=== PATIENT | female | born 1980 | race Caucasian/White ===

== ENCOUNTER 2023-01-27 17:19 | Emergency (ER) | payer OTHER, SELFPAY ==
--- NOTE | ~2023-01-27 | CT_ITS ---
EXAMINATION: CT ABDOMEN AND PELVIS WITH CONTRAST CLINICAL INFORMATION: Left lower quadrant abdominal pain COMPARISON: 09/04/2019 TECHNIQUE: Multidetector volumetric images were obtained from the superior aspect of the liver through the pubic symphysis following administration 85 mL of Omnipaque 350 intravenous contrast. Sagittal and coronal reformatted images were obtained on the technologist's workstation. Oral contrast: No This CT examination was performed using dose optimization techniques as appropriate, variously including the following: *Automated exposure control *Adjustment of mA and/or kV according to patient size (this includes techniques or standardized protocols for targeted exams where dose is matched to indication/reason for exam; i.e. extremities or head) *Use of iterative reconstruction technique DLP: 398 mGy-cm FINDINGS: LUNG BASES: The visualized lung bases are unremarkable. LIVER, GALLBLADDER, AND BILIARY TREE: The liver is normal in size, shape, and attenuation. No focal hepatic lesion or biliary ductal dilatation is present. The gallbladder is unremarkable with no evidence of radiopaque gallstones, gallbladder wall thickening, or obvious pericholecystic inflammatory changes. PANCREAS: Cystic area in the region of the uncinate process of uncertain etiology. This may be septated. Measures 1.2 cm SPLEEN: Unremarkable. ADRENAL GLANDS: Unremarkable. KIDNEYS AND URETERS: The kidneys are normal in size, shape, and attenuation. No hydronephrosis, hydroureter, or calculi seen. No perinephric stranding. BLADDER: Unremarkable. GASTROINTESTINAL TRACT: Nonobstructing bowel pattern. ABDOMINAL WALL: No significant hernia is appreciated. LYMPH NODES: Normal. VASCULAR: Stent once again seen involving the left renal vein. Hardware in the abdomen appears unchanged. PELVIC VISCERA: Some free fluid is seen in the deep pelvis. IUD appears to be in the lower uterine segment and cervical region. OSSEOUS STRUCTURES: Unremarkable. CT/CT abdomen pelvis w IV con IMPRESSION: The bowel pattern is nonobstructing. It is noted the IUD is in the lower uterine segment/cervical region and may have migrated inferiorly There is a small amount of free fluid in the deep pelvis. Small cystic lesion in the region of the uncinate process of the pancreas. Recommend ultrasound and/or pre and postcontrast MR to further evaluate.
[2023-01-27 17:54] VITALS: BP 114/76; PULSE 78; RESP 16; TEMP 36.4; O2SAT 98; BMI 23.3
--- NOTE | 2023-01-27 17:54 | ED_ITS ---
HPI - Abdominal Pain General Chief Complaint: Abdominal Pain Stated Complaint: left side abd pain Time Seen by Provider: 01/27/23 20:11 Source: patient Mode of arrival: ambulatory Limitations: no limitations History of Present Illness HPI narrative: Patient having pain in left upper abdomen radiating to left flank last 2 days patient with nausea ,vomiting loose bowel pain increases on deep inspiration no fever no chills no urinary symptom no history of kidney stone had some bright red blood in the stool with history of hemorrhoids as in the past Related Data Previous Rx's Medication Instructions Recorded cefuroxime axetil 250 mg tablet 250 mg PO BID 7 days #14 tabs 01/27/23 ibuprofen 600 mg tablet 600 mg PO Q6H PRN fever or pain 01/27/23 #30 tabs Allergies Allergy/AdvReac Type Severity Reaction Status Date / Time vortioxetine Allergy Unknown Verified 01/27/23 17:54 [From Trintellix] lorazepam [From Ativan] AdvReac Mild HALLUCINATI Unverified 01/27/23 17:54 ON Review of Systems Review of Systems Yes all other systems are reviewed and are negative [facility] Social History Social History Advance Directives: No Advance Directives Information Provided: Yes Physical Exam ED Vital Signs: Vital Signs - 24 hr 01/27/23 17:54 01/27/23 20:10 Temperature 97.6 F Pulse Rate 78 74 Respiratory Rate 16 18 Blood Pressure 114/76 112/71 Pulse Oximetry 98 98 Oxygen Delivery Method Room Air Room Air BMI result Body Mass Index 23.3 Appearance: Alert. Oriented X3. No acute distress. ENT: Pharynx normal. Oral Mucosa moist Neck: Normal inspection. Neck supple. CVS: Normal heart rate and rhythm. Pulses normal. Respiratory: No respiratory distress. Equal air entry bilateral, no wheezing/rales/rhonchi Abdomen: Soft , tender left upper quadrant with mild guarding no rebound tenderness Bowel sounds are present, no mass palpable, left CVA tenderness++ Skin: Skin warm and dry. Normal skin color. Normal skin turgor. Extremities: No lower extremity edema. No calf tenderness Neuro: Oriented X 3. No motor deficit. Course Course Course Narrative: This is an RME: Additional HPI, ROS, PE not included below will be deferred to primary provider. Patient is a 42-year-old female who presents emergency department for evaluation of left-sided abdominal x2 days, with associated nausea and vomiting, and diarrhea pain is progressively worsening. Reports with deep inspiration pain radiating to left lower back. Yesterday with bright red blood in stools, she does report a history of hemorrhoids. No genitourinary symptoms. Plan: Labs, urinalysis, CT AP Medical Decision Making Medical Decision Making [facility] Narrative: Patient with left flank pain and left upper abdominal pain workup showed uncomplicated UTI CT scan negative for acute discharge patient home on Ceftin Lab Data [facility] Lab Attestation statement: I reviewed the patient's lab results. 01/27/23 18:11 01/27/23 18:11 Labs: Lab Results 01/27/23 01/27/23 01/27/23 Range/Units 18:10 18:11 18:11 WBC 6.4 (4.8-10.8) X10*3/uL RBC 4.17 L (4.20-5.50) X10*6/uL Hgb 11.5 L (12.0-16.0) g/dl Hct 35.3 L (37.0-47.0) % MCV 84.7 (80.0-98.0) fL MCH 27.6 (27.0-33.0) pg MCHC 32.6 (31.0-35.0) g/dl RDW 13.9 (11.0-16.0) % Plt Count 266 (160-400) X10*3/uL MPV 10.1 (9.4-12.3) fL Immature Gran % (Auto) 0.2 (0.0-0.4) % Neut % (Auto) 54.9 (45-73) % Lymph % (Auto) 34.6 (20-40) % [place] % (Auto) 8.5 (2-11) % Eos % (Auto) 1.6 (0-4) % Baso % (Auto) 0.2 (0-2) % Lymph # (Auto) 2.2 (1.2-4.9) X10*3/uL [place] # (Auto) 0.5 (0.1-1.2) X10*3/uL Eos # (Auto) 0.1 (0.0-0.4) X10*3/uL Baso # (Auto) 0.0 (0.0-0.2) X10*3/uL Abs Immat Gran (auto) 0.01 (0.00-0.03) X10*3/uL Absolute Neuts (auto) 3.5 (2.0-8.3) x10*3/uL Absolute Nucleated RBC 0.000 (0.0-0.012) X10*3/uL Nucleated RBC % (auto) 0.0 (0.0-0.2) /100WBC Sodium 142 (135-145) mmol/L Potassium 3.6 (3.3-5.1) mmol/L Chloride 108 (96-108) mmol/L Carbon Dioxide 26 (22-29) mmol/L Anion Gap 12 (12-20) BUN 7 L (9-16) mg/dL Creatinine 0.84 (0.5-1.4) mg/dL Estim Creat Clear Calc 76.8 Estimated GFR > 60 Random Glucose 93 (60-115) mg/dL Calcium 9.7 (8.4-10.2) mg/dL Total Bilirubin 0.3 (0.0-1.0) mg/dL AST 13 (5-31) U/L ALT 10 (0-31) U/L Alkaline Phosphatase 65 (39-117) U/L Total Protein 7.3 (6.5-8.0) g/dL Albumin 4.5 (3.5-5.0) g/dL Lipase 22 (8-78) U/L Urine Color Yellow Urine Appearance Cloudy Urine pH 5.5 (5.0-9.0) Ur Specific [place] 1.025 (1.005-1.025) Urine Protein Negative (Neg-Trace) mg/dL Urine Glucose (UA) Negative (Negative) mg/dL Urine Ketones Trace (Negative) mg/dL Urine Blood Negative (Negative) Urine Nitrite Negative (Negative) Ur Leukocyte Esterase Small (1+) H (Negative) Urine RBC 11-20 H (0-2) /HPF Urine WBC 6-10 H (0-5) /HPF Ur Squamous Epith Cells 11-20 (0-2) /HPF Urine Bacteria 4+ (None Seen) Hyaline Casts 0-2 (0-2) /LPF Urine Test (NEGATIVE) 01/27/23 Range/Units 18:11 WBC (4.8-10.8) X10*3/uL RBC (4.20-5.50) X10*6/uL Hgb (12.0-16.0) g/dl Hct (37.0-47.0) % MCV (80.0-98.0) fL MCH (27.0-33.0) pg MCHC (31.0-35.0) g/dl RDW (11.0-16.0) % Plt Count (160-400) X10*3/uL MPV (9.4-12.3) fL Immature Gran % (Auto) (0.0-0.4) % Neut % (Auto) (45-73) % Lymph % (Auto) (20-40) % [place] % (Auto) (2-11) % Eos % (Auto) (0-4) % Baso % (Auto) (0-2) % Lymph # (Auto) (1.2-4.9) X10*3/uL [place] # (Auto) (0.1-1.2) X10*3/uL Eos # (Auto) (0.0-0.4) X10*3/uL Baso # (Auto) (0.0-0.2) X10*3/uL Abs Immat Gran (auto) (0.00-0.03) X10*3/uL Absolute Neuts (auto) (2.0-8.3) x10*3/uL Absolute Nucleated RBC (0.0-0.012) X10*3/uL Nucleated RBC % (auto) (0.0-0.2) /100WBC Sodium (135-145) mmol/L Potassium (3.3-5.1) mmol/L Chloride (96-108) mmol/L Carbon Dioxide (22-29) mmol/L Anion Gap (12-20) BUN (9-16) mg/dL Creatinine (0.5-1.4) mg/dL Estim Creat Clear Calc Estimated GFR Random Glucose (60-115) mg/dL Calcium (8.4-10.2) mg/dL Total Bilirubin (0.0-1.0) mg/dL AST (5-31) U/L ALT (0-31) U/L Alkaline Phosphatase (39-117) U/L Total Protein (6.5-8.0) g/dL Albumin (3.5-5.0) g/dL Lipase (8-78) U/L Urine Color Urine Appearance Urine pH (5.0-9.0) Ur Specific [place] (1.005-1.025) Urine Protein (Neg-Trace) mg/dL Urine Glucose (UA) (Negative) mg/dL Urine Ketones (Negative) mg/dL Urine Blood (Negative) Urine Nitrite (Negative) Ur Leukocyte Esterase (Negative) Urine RBC (0-2) /HPF Urine WBC (0-5) /HPF Ur Squamous Epith Cells (0-2) /HPF Urine Bacteria (None Seen) Hyaline Casts (0-2) /LPF Urine Test NEGATIVE (NEGATIVE) Medications Administered Discontinued Medications Generic Name Dose Route Start Last Admin Trade Name Freq PRN Reason Stop Dose Admin Sodium Chloride 1,000 mls @ 999 mls/hr 01/27/23 20:25 01/27/23 21:10 Ns IV 01/27/23 21:25 999 mls/hr .Q1H1M ONE Administration Ceftriaxone Sodium 1 gm/ 50 mls @ 100 mls/hr 01/27/23 20:25 01/27/23 21:14 Sodium Chloride IV 01/27/23 20:54 100 mls/hr ONCE ONE Administration Iohexol 100 ml 01/27/23 19:59 01/27/23 20:03 Iohexol 350 Mg/Ml 100 Ml Infus..Btl IV 01/27/23 20:00 85 ml ONCE ONE Administration Ketorolac Tromethamine 30 mg 01/27/23 20:25 01/27/23 21:11 Ketorolac Tromethamine 30 Mg/Ml Vial IVPUSH 01/27/23 20:26 30 mg ONCE ONE Administration Ondansetron HCl 4 mg 01/27/23 20:25 01/27/23 21:11 Ondansetron Hcl 4 Mg/2 Ml Vial IVPUSH 01/27/23 20:26 4 mg ONCE ONE Administration Discharge Plan Discharge Clinical Impression: UTI (urinary tract infection) Patient Disposition: Home, Self-Care Instructions: Urinary Tract Infection in Women (ED) Additional Instructions: Drink plenty of fluids Antibiotic as prescribed Ibuprofen for pain Report to the ER if worsening or pain/fever/vomiting Prescriptions: New cefuroxime axetil 250 mg tablet 250 mg PO BID 7 Days Qty: 14 0RF ibuprofen 600 mg tablet 600 mg PO Q6H PRN (Reason: fever or pain) Qty: 30 0RF Discharge Date/Time: 01/27/23 22:52
[2023-01-27 18:15] LABS: MANUAL DIFF FLAG NO
[2023-01-27 18:19] LABS: UPreg QC Valid YES
[2023-01-27 18:19] LABS: Appearance Urine Cloudy; Color Urine Yellow; Glucose Urine UA Negative (Negative); Leukocyte Esterase Urine Small (1+) (Negative); Nitrite Urine Negative (Negative); PH 5.5 (5.0-9.0); Specific Gravity - Urine 1.025 (1.005-1.025); UMIC TRIGGER UACC YES; Urine Blood Negative (Negative); Urine Ketones Trace mg/dL (Negative); Urine Protein Negative (Neg-Trace)
[2023-01-27 18:20] LABS: Urine Pregnancy NEGATIVE (NEGATIVE)
[2023-01-27 18:30] LABS: Basophils Percent Auto 0.2 % (0-2); Eosinophils Absolute Auto 0.1 X10*3/uL (0.0-0.4); Eosinophils Percent Auto 1.6 % (0-4); Hematocrit 35.3 % (37.0-47.0); Hemoglobin 11.5 g/dl (12.0-16.0); Imm Gran Abs Auto 0.01 X10*3/uL (0.00-0.03); Imm Gran Pct Auto 0.2 % (0.0-0.4); Lymphocytes Absolute Auto 2.2 X10*3/uL (1.2-4.9); Lymphocytes Percent Auto 34.6 % (20-40); Mean Corpuscular HGB Conc 32.6 g/dl (31.0-35.0); Mean Corpuscular Hemoglobin 27.6 pg (27.0-33.0); Mean Corpuscular Volume 84.7 fL (80.0-98.0); Mean Platelet Volume 10.1 fL (9.4-12.3); Monocytes Absolute Auto 0.5 X10*3/uL (0.1-1.2); Monocytes Percent Auto 8.5 % (2-11); Neutrophils Absolute Auto 3.5 x10*3/uL (2.0-8.3); Neutrophils Percent Auto 54.9 % (45-73); Platelet Count 266 X10*3/uL (160-400); Red Blood Count 4.17 X10*6/uL (4.20-5.50); Red Cell Distribution Width 13.9 % (11.0-16.0); White Blood Count 6.4 X10*3/uL (4.8-10.8)
[2023-01-27 18:33] LABS: Alanine Aminotransferase 10 U/L (0-31); Albumin Level 4.5 g/dL (3.5-5.0); Alkaline Phosphatase 65 U/L (39-117); Anion Gap 12 (12-20); Aspartate Amino Transferase 13 U/L (5-31); Bilirubin Total 0.3 mg/dL (0.0-1.0); Blood Urea Nitrogen 7 mg/dL (9-16); Calcium 9.7 mg/dL (8.4-10.2); Carbon Dioxide 26 mmol/L (22-29); Chloride 108 mmol/L (96-108); Creatinine Clr Calc Pharmacy 76.8; Estimated Glomerular Filt Rate > 60; Glucose Random 93 mg/dL (60-115); Lipase 22 U/L (8-78); Potassium 3.6 mmol/L (3.3-5.1); Sodium 142 mmol/L (135-145); Total Protein 7.3 g/dL (6.5-8.0)
[2023-01-27 18:42] LABS: Bacteria Urine 4+ (None Seen); Hyaline Casts Urine 0-2 /LPF (0-2); UACC Culture Trigger YES
[2023-01-27] MEDS: iohexoL 350 MG/ML 100 ML INFUS..BTL IV (20:03)
[2023-01-27 20:10] VITALS: BP 112/71; PULSE 74; RESP 18; O2SAT 98
[2023-01-27] MEDS: 0.9 % Sodium Chloride 1,000 ML 999 ML IV (21:10)
[2023-01-27] MEDS: ondansetron HCL 4 MG/2 ML VIAL IVPUSH (21:11)
[2023-01-27] MEDS: Ketorolac Tromethamine 30 MG/ML VIAL IVPUSH (21:11)
[2023-01-27] MEDS: cefTRIAXone sodium 1 GM in 0.9 % Sodium Chloride 50 ML IV (21:14)
== END 2023-01-27 22:52 | disposition home or self-care (01) ==
PROVIDERS: Nurse Practitioner Family; Emergency Provider Internal Medicine; PCP Family Medicine
DX: N39.0 Urinary tract infection, site not specified (principal); R11.2 Nausea with vomiting, unspecified
CPT/HCPCS: 36415; 74177; 80053; 81001; 81025; 83690; 85025; 87086; 96361; 96365; 96375; 99284; J0696; J1885; J2405; Q9967

== ENCOUNTER 2024-05-22 13:41 | Emergency (ER) | payer OTHER, SELFPAY ==
--- NOTE | ~2024-05-22 | CT_ITS ---
EXAMINATION: CT HEAD WITHOUT CONTRAST CLINICAL INFORMATION: Headache. Confusion. COMPARISON: CT head from 06/25/2008. TECHNIQUE: Contiguous axial imaging was performed from the skull base to vertex without intravenous administration of contrast. This CT examination was performed using dose optimization techniques as appropriate, variously including the following: *Automated exposure control. *Adjustment of mA and/or kV according to patient size (this includes techniques or standardized protocols for targeted exams where dose is matched to indication/reason for exam; i.e. extremities or head). *Use of iterative reconstruction technique. DLP: 501 mGy-cm FINDINGS: There is no evidence of acute intracranial hemorrhage or edematous territorial infarction. Adams-white matter differentiation is preserved. There is no abnormal attenuation within the brain parenchyma. The ventricles are normal in morphology and size. No evidence for obstructive hydrocephalus. The suprasellar cistern remains widely patent. Normal positioning of the cerebellar tonsils. No abnormal mass effect or midline shift. No extra-axial fluid collections. No acute soft tissue or osseous abnormalities. The mastoid air cells and visualized paranasal sinuses are clear. CT/CT head/brain wo IV con IMPRESSION: No evidence of acute intracranial hemorrhage or edematous territorial infarction. Electronically signed by: Corky Muniz DO 05/22/2024 07:20 PM EDT
[2024-05-22 14:41] VITALS: BP 137/81; PULSE 85; RESP 16; TEMP 37; O2SAT 100; BMI 20.8
--- NOTE | 2024-05-22 14:41 | ED_ITS ---
HPI - Headache General Chief Complaint: Headache Stated Complaint: [id number] neck pain Time Seen by Provider: 05/22/24 18:32 Source: patient, RN notes reviewed and old records reviewed Mode of arrival: ambulatory Limitations: no limitations History of Present Illness ED Provider: Nav LITTLE Narrative: 44-year-old female with past medical history significant for hypothyroidism, history of seizure disorder, history of migraines, pelvic congestion syndrome presents for evaluation of a headache. Patient reports that 6 days ago she went to urgent care due to a posterior headache. She was given injection of Toradol which seemed to dull the headache but it never went away Since this morning the patient reports that her headache is significantly worse, her pain is a 10/10, it is now radiating down her neck into her back. She reports some dizziness. She states that she had an episode of the ?staring off into space and feeling stuck. ? Her last epileptic seizure was about 10 years ago when she was She is not currently on any antiepileptic medications. The patient denies any fevers, chills, respiratory symptoms such as cough +shortness of breath, sore throat She reports taking Fioricet several hours ago with no improvement in her symptoms Related Data Previous Rx's ?Medication ?Instructions ?Recorded cefuroxime axetil 250 mg tablet 250 mg PO BID 7 days #14 tabs 01/27/23 ibuprofen 600 mg tablet 600 mg PO Q6H PRN fever or pain 01/27/23 #30 tabs Allergies Allergy/AdvReac Type Severity Reaction Status Date / Time vortioxetine Allergy Unknown Verified 05/22/24 14:45 [From Trintellix] lorazepam [From Ativan] AdvReac Mild HALLUCINATI Verified 05/22/24 14:45 ON Review of Systems 2 Constitutional: Constitutional: Denies body ache(s), Denies chills, Denies fever(s) and Reports headache(s) Eyes: Eyes: Denies blurry vision and Denies exophthalmos ENT: Denies vertigo, Reports dizziness, Reports headache(s) and Reports neck pain Cardiovascular: Cardiovascular: Denies chest pain and Denies dyspnea Respiratory: Respiratory: Denies cough and Denies dyspnea Gastrointestinal: Gastrointestinal: Denies abdominal pain, Denies nausea and Denies vomiting Musculoskeletal: Musculoskeletal: Denies back pain, Reports neck pain and Denies stiffness Integumentary/Breasts: Skin/Breast: Denies rash Neurologic: Denies vertigo, Reports dizziness and Reports headache(s) [facility] Social History Social History Smoked in Last 30 Days: No Use of substances other than those prescribed or required for medical reasons: No Advance Directives: No Advance Directives Information Provided: No Do you have a plan to hurt others: No Plan Patient : No Physical Exam 2 Vital Signs: Vital Signs: Last Vital Signs Temp 98.6 F 05/22/24 14:41 Pulse 85 05/22/24 14:41 Resp 16 05/22/24 14:41 BP 137/81 05/22/24 14:41 Pulse Ox 100 05/22/24 14:41 O2 Del Method Room Air 05/22/24 14:41 BMI result Body Mass Index 20.8 Const: General: healthy appearing, no acute distress, alert and awake N utritional Appearance: well nourished Orientation/consciousness: patient oriented x3 HEENT: Head: Yes normocephalic and Yes atraumatic Throat: Yes posterior oropharynx normal Eyes: Eyelids: Yes eyelids normal Conjunctivae: conjunctivae normal S clerae: sclerae normal Corneas: corneas normal Pupils: Equal, round and reactive pupils present EOM: EOMs intact bilaterally Neck: Other: No meningeal signs, the patient's position of comfort is actually with her chin flex down to her chest Neck: Yes full ROM, No positive Brudzinski's sign and No positive Kernig's sign Resp: Effort & Inspection: normal respiratory effort, able to speak in complete sentences and not labored GI: Inspection: No distended Palpation (GI): Soft to palpation, not firm, nontender, no guarding and not rigid Skin: General skin exam: elasticity normal Neuro: General: patient oriented x3 Cranial nerves: Yes CN's II-XII intact bilaterally, Yes Equal, round and reactive pupils present and Yes Bilaterally intact EOM present Cognition (Neuro): normal cognition Motor exam (neuro): 5/5 motor strength present throughout Course Course Course Narrative: This is a Rapid Medical Examination (RME) performed by Ana María Suggs PA-C in triage. Full HPI, ROS, assessment and treatment plan per primary provider in the Main ED. 44 yo female with history of anxiety/depression, history of seizures as a child who is presenting to the ER for evaluation of 6 days of a migraine headache. seen at Urgent Care 6 days ago and got toradol. now reports ongoing headache along with confusion and word finding difficulty intermittently. episode where she felt stuck and couldnt respond, staring off. neurologically intact in triage with normal speech. steady gait. Plan: ?partial seizures, labs and CT head Reevaluation(s) Reevaluation #1: Patient reports feeling much better after receiving medications, she is stable for discharge at this time Time: 20:01 Medications Administered Discontinued Medications Generic Name Dose Route Start Last Admin Trade Name Freq PRN Reason Stop Dose Admin Diphenhydramine HCl 25 mg 05/22/24 18:48 05/22/24 19:00 Diphenhydramine Hcl 50 Mg/Ml Vial IVPUSH 05/22/24 18:49 25 mg ONCE ONE Administration Sodium Chloride 1,000 mls @ 999 mls/hr 05/22/24 19:00 05/22/24 18:59 Ns IV 05/22/24 20:00 999 mls/hr .Q1H1M MAGEN Administration Ketorolac Tromethamine 30 mg 05/22/24 18:48 05/22/24 18:59 Ketorolac Tromethamine 30 Mg/Ml Vial IVPUSH 05/22/24 18:49 30 mg ONCE ONE Administration Metoclopramide HCl 10 mg 05/22/24 18:48 05/22/24 18:59 Metoclopramide Hcl 10 Mg/2 Ml Vial IVPUSH 05/22/24 18:49 10 mg ONCE ONE Administration Medical Decision Making Medical Decision Making MDM Narrative: 44-year-old female presents for evaluation of a headache. Her symptoms started 6 days ago and have been progressively worsening. She has no meningeal sign, no fever, no leukocytosis, I doubt infectious cause such as encephalitis or meningitis. The patient is neuro exam is reassuring, she has no focal deficits. A CT scan of the brain was ordered. I doubt seizure as the cause of her symptoms as there was no witnessed seizure, her headache started 6 days ago. Most likely diagnosis is a simple migraine headache. She was given a migraine cocktail of Toradol, Reglan, Benadryl, will reassess Differential Diagnosis Differential Diagnoses: The differential diagnosis associated with the presentation includes Migraine headache Tension headache Cluster headache Meningitis Encephalitis Absence seizure less likely Lab Data MDM Lab Attestation statement: I reviewed the patient's lab results. No leukocytosis. The patient does have a mild anemia. Normal platelet count. No significant electrolyte abnormalities. 05/22/24 15:10 05/22/24 15:10 Labs: Lab Results 05/22/24 05/22/24 Range/Units 15:10 15:17 WBC 5.0 (4.8-10.8) X10*3/uL RBC 3.94 L (4.20-5.50) X10*6/uL Hgb 11.8 L (12.0-16.0) g/dl Hct 35.1 L (37.0-47.0) % MCV 89.1 (80.0-98.0) fL MCH 29.9 (27.0-33.0) pg MCHC 33.6 (31.0-35.0) g/dl RDW 13.2 (11.0-16.0) % Plt Count 233 (160-400) X10*3/uL MPV 10.1 (9.4-12.3) fL Immature Gran % (Auto) 0.2 (0.0-0.4) % Neut % (Auto) 63.8 (45-73) % Lymph % (Auto) 27.0 (20-40) % [place] % (Auto) 8.2 (2-11) % Eos % (Auto) 0.4 (0-4) % Baso % (Auto) 0.4 (0-2) % Lymph # (Auto) 1.4 (1.2-4.9) X10*3/uL [place] # (Auto) 0.4 (0.1-1.2) X10*3/uL Eos # (Auto) 0.0 (0.0-0.4) X10*3/uL Baso # (Auto) 0.0 (0.0-0.2) X10*3/uL Abs Immat Gran (auto) 0.01 (0.00-0.03) X10*3/uL Absolute Neuts (auto) 3.2 (2.0-8.3) x10*3/uL Absolute Nucleated RBC 0.000 (0.0-0.012) X10*3/uL Nucleated RBC % (auto) 0.0 (0.0-0.2) /100WBC Sodium 141 (135-145) mmol/L Potassium 3.7 (3.3-5.1) mmol/L Chloride 105 (96-108) mmol/L Carbon Dioxide 30 H (22-29) mmol/L Anion Gap 10 L (12-20) BUN 6 L (9-16) mg/dL Creatinine 0.83 (0.5-1.4) mg/dL Estim Creat Clear Calc 75.7 Estimated GFR > 60 Random Glucose 91 (60-115) mg/dL Calcium 9.8 (8.4-10.2) mg/dL Magnesium 2.1 (1.6-2.6) mg/dL Total Bilirubin 0.4 (0.0-1.0) mg/dL Direct Bilirubin 0.2 (0.0-0.5) mg/dL AST 16 (5-31) U/L ALT 15 (0-31) U/L Alkaline Phosphatase 56 (39-117) U/L Total Protein 7.3 (6.5-8.0) g/dL Albumin 4.6 (3.5-5.0) g/dL Urine Color Yellow Urine Appearance Clear Urine pH 7.0 (5.0-9.0) Ur Specific [place] 1.010 (1.005-1.025) Urine Protein Negative (Neg-Trace) mg/dL Urine Glucose (UA) Negative (Negative) mg/dL Urine Ketones Negative (Negative) mg/dL Urine Blood Negative (Negative) Urine Nitrite Negative (Negative) Ur Leukocyte Esterase Trace H (Negative) Urine RBC 0-2 (0-2) /HPF Urine WBC 6-10 H (0-5) /HPF Ur Squamous Epith Cells 3-5 (0-2) /HPF Urine Bacteria Trace (None Seen) Hyaline Casts 0-2 (0-2) /LPF Independent Interpretation I performed an independent interpretation of an: CT Scan (No obvious intracranial hemorrhage, mass effect or midline shift) Discharge Plan Discharge Clinical Impression: Headache Patient Disposition: Home, Self-Care Instructions: Acute Headache (ED) Additional Instructions: Your workup in the ER today was reassuring. This includes your CT scan, labs and viral swabs. Follow-up with your primary doctor, return for new or worsening symptoms You may benefit from neurology follow-up if her symptoms start to reoccur Prescriptions: No Action cefuroxime axetil 250 mg tablet 250 mg PO BID 7 Days Qty: 14 0RF ibuprofen 600 mg tablet 600 mg PO Q6H PRN (Reason: fever or pain) Qty: 30 0RF Print Language: Portuguese
[2024-05-22 15:17] LABS: Basophils Percent Auto 0.4 % (0-2); Eosinophils Percent Auto 0.4 % (0-4); Hematocrit 35.1 % (37.0-47.0); Hemoglobin 11.8 g/dl (12.0-16.0); Imm Gran Abs Auto 0.01 X10*3/uL (0.00-0.03); Imm Gran Pct Auto 0.2 % (0.0-0.4); Lymphocytes Absolute Auto 1.4 X10*3/uL (1.2-4.9); MANUAL DIFF FLAG NO; Mean Corpuscular HGB Conc 33.6 g/dl (31.0-35.0); Mean Corpuscular Hemoglobin 29.9 pg (27.0-33.0); Mean Corpuscular Volume 89.1 fL (80.0-98.0); Mean Platelet Volume 10.1 fL (9.4-12.3); Monocytes Absolute Auto 0.4 X10*3/uL (0.1-1.2); Monocytes Percent Auto 8.2 % (2-11); Neutrophils Absolute Auto 3.2 x10*3/uL (2.0-8.3); Neutrophils Percent Auto 63.8 % (45-73); Platelet Count 233 X10*3/uL (160-400); Red Blood Count 3.94 X10*6/uL (4.20-5.50); Red Cell Distribution Width 13.2 % (11.0-16.0)
[2024-05-22 15:26] LABS: Appearance Urine Clear; Color Urine Yellow; Glucose Urine UA Negative (Negative); Leukocyte Esterase Urine Trace (Negative); Nitrite Urine Negative (Negative); UMIC TRIGGER UACC YES; Urine Blood Negative (Negative); Urine Ketones Negative (Negative); Urine Protein Negative (Neg-Trace)
[2024-05-22 15:31] LABS: Bacteria Urine Trace (None Seen); Hyaline Casts Urine 0-2 /LPF (0-2); RBC Urine 0-2 /HPF (0-2); UACC Culture Trigger YES
[2024-05-22 15:32] LABS: Alanine Aminotransferase 15 U/L (0-31); Albumin Level 4.6 g/dL (3.5-5.0); Alkaline Phosphatase 56 U/L (39-117); Anion Gap 10 (12-20); Aspartate Amino Transferase 16 U/L (5-31); Bilirubin Direct 0.2 mg/dL (0.0-0.5); Bilirubin Total 0.4 mg/dL (0.0-1.0); Blood Urea Nitrogen 6 mg/dL (9-16); Calcium 9.8 mg/dL (8.4-10.2); Carbon Dioxide 30 mmol/L (22-29); Chloride 105 mmol/L (96-108); Creatinine Clr Calc Pharmacy 75.7; Estimated Glomerular Filt Rate > 60; Glucose Random 91 mg/dL (60-115); Magnesium 2.1 mg/dL (1.6-2.6); Potassium 3.7 mmol/L (3.3-5.1); Sodium 141 mmol/L (135-145); Total Protein 7.3 g/dL (6.5-8.0)
[2024-05-22] MEDS: 0.9 % Sodium Chloride 1,000 ML 999 ML IV (18:59)
[2024-05-22] MEDS: Metoclopramide HCl 10 MG/2 ML VIAL IVPUSH (18:59)
[2024-05-22] MEDS: Ketorolac Tromethamine 30 MG/ML VIAL IVPUSH (18:59)
[2024-05-22] MEDS: diphenhydrAMINE HCL 50 MG/ML VIAL 25 MG IVPUSH (19:00)
--- NOTE | 2024-05-22 19:02 | PC.NURSE ---
pt from home, a&ox4, respirations even and unlabored. pt reporting onset of headache starting 3 days ago, reports getting a shot of toradol and having relief but reports today she woke up with a worsening migraine and unable to find relief. pt neuro in tact, reports light sensitivity. 20G placed in left ac, pt medicated per oct, lights dimmed and door shut.
[2024-05-22 20:13] VITALS: BP 114/67; PULSE 69; RESP 18; TEMP 37.2; O2SAT 100
[2024-05-22 20:14] VITALS: BP 114/67; PULSE 69; RESP 18; TEMP 37.2; O2SAT 100
== END 2024-05-22 20:14 | disposition home or self-care (01) ==
PROVIDERS: Physician Assistant; Emergency Provider Internal Medicine; PCP Family Medicine
DX: R51.9 Headache, unspecified (principal); M54.50 Low back pain, unspecified; M54.2 Cervicalgia; R82.79 Other abnormal findings on microbiological examination of urine; R11.2 Nausea with vomiting, unspecified; R05.9 Cough, unspecified; R06.02 Shortness of breath; Z79.899 Other long term (current) drug therapy
CPT/HCPCS: 36415; 70450; 80048; 80076; 81001; 83735; 85025; 87086; 96361; 96374; 96375; 99284; 99285; J1200; J1885; J2765

== ENCOUNTER 2025-01-27 07:31 | Emergency (ER) | payer OTHER, SELFPAY ==
--- NOTE | ~2025-01-27 | CT_ITS ---
EXAMINATION: CT ABDOMEN AND PELVIS WITH CONTRAST CLINICAL INFORMATION: Left sided abdominal pain. COMPARISON: January 27, 2023. TECHNIQUE: Multidetector volumetric images were obtained from the superior aspect of the liver through the pubic symphysis following administration 85 mL of Omnipaque 350 intravenous contrast. Sagittal and coronal reformatted images were obtained on the technologist's workstation. Oral contrast: No This CT examination was performed using dose optimization techniques as appropriate, variously including the following: *Automated exposure control *Adjustment of mA and/or kV according to patient size (this includes techniques or standardized protocols for targeted exams where dose is matched to indication/reason for exam; i.e. extremities or head) *Use of iterative reconstruction technique. DLP: 316 mGy centimeter. FINDINGS: LUNG BASES: No acute airspace disease. LIVER, GALLBLADDER, AND BILIARY TREE: Liver measures 14 cm. No enhancing mass. Portal veins, hepatic veins and intrahepatic portion of the IVC are patent. No intrahepatic biliary ductal dilatation. Gallbladder is contracted. No pericholecystic fluid collection or gallbladder wall thickening. Common bile duct measures 4 mm. PANCREAS: There is a cluster of well-defined, 7 and 4 mm fluid density in the inferior aspect of the head of the pancreas/uncinate process junction. No main pancreatic ductal dilatation. No peripancreatic fluid collection. SPLEEN: 8 cm. No focal lesion. ADRENAL GLANDS: No nodular lesions. KIDNEYS AND URETERS: No hydronephrosis. No nephrolithiasis. No gross renal mass. Normal enhancement pattern of the renal cortex. The uterus are not dilated. BLADDER: Fluid-filled. GASTROINTESTINAL TRACT: Sutures in the right hemiabdomen probably involving the hepatic colonic flexure. No intestinal obstruction pattern. No pneumatosis intestinalis. No intestinal wall thickening. Terminal ileum is normal. Collapsed appearance of the left hemicolon. Appendix is normal. Nonspecific gas and fluid-filled mildly prominent distal small bowel loops. No pneumoperitoneum. Small amount of ascites in the cul-de-sac. ABDOMINAL WALL: Small fat-containing umbilical hernia. LYMPH NODES: No mesenteric or retroperitoneal lymphadenopathy. VASCULAR: Status post stenting, left main renal vein into the IVC with grossly normal patency. Multiple coil embolization left ovarian vein. There is swirling of the superior mesenteric vein. 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 PELVIC VISCERA: Heterogeneous appearance of the uterus in indifferent position. There is no intrauterine contraceptive device. No gross masses in either ovary. OSSEOUS STRUCTURES: No acute fracture or listhesis in the axial skeleton. Bony pelvis is intact. Coxofemoral joints are intact with normal alignment. Spina bifida S1 and S2 without meningocele and/or pseudomeningocele.. CT/CT abdomen pelvis w IV con IMPRESSION: Small fat-containing umbilical hernia. No intestinal obstruction pattern. Consider mild enteritis in the correct clinical settings. Stable subcentimeter simple pancreatic cystic lesions. Status post stenting left main renal vein and coronal embolization left ovarian vein. Status post removal intrauterine contraceptive device. Fleischner guidelines were followed. Electronically signed by: Rodney Beltrán MD 01/27/2025 10:16 AM EDT
[2025-01-27 07:42] VITALS: BP 133/85; PULSE 70; RESP 18; TEMP 36.7; O2SAT 100; BMI 19.1
--- NOTE | 2025-01-27 08:04 | ED_ITS ---
HPI - Abdominal Pain General Chief Complaint: Abdominal Pain Stated Complaint: abd pain , nausea Time Seen by Provider: 01/27/25 08:03 Source: patient Mode of arrival: ambulatory Limitations: no limitations History of Present Illness ED Provider: RADHA CONWAY PA-C HPI narrative: 44 year old female presents to the ED today for evaluation of left sided abdominal pain x3 days. Reports long standing history of abdominal pain, N/V/D. She states her outpatient providers have suspicion that her chronic abdominal pain is caused by compressed nerves in her abdomen and as a result, patient receive a recent abdominal wall injection for pain management 1 month ago. Since this time has had small area of erythema surrounding the injection site and the area appears depressed . She contacted her provider who performed the injection and was informed that this is to be expected. They did not recommend any further follow up/ investigations. She has now been having increased left- sided abdominal pain x3 days. No radiation. Has not trialed any pain medications at home for this. She is awaiting an appointment with pain management. Has not yet been contacted to schedule an appointment. She reports nonbloody vomiting and loose stool at baseline, no change. Denies fever, chills. Denies urinary symptoms including dysuria, hematuria, increased urinary frequency, urgency. Related Data Previous Rx's ?Medication ?Instructions ?Recorded cefuroxime axetil 250 mg tablet 250 mg PO BID 7 days # 14 tabs 01/27/23 ibuprofen 600 mg tablet 600 mg PO Q6H PRN fever or p ain 01/27/23 #30 tabs oxycodone 5 mg tablet 5 mg PO Q8H PRN pain (scale score 01/27/25 7-10) 3 days #9 tabs Allergies Allergy/AdvReac Type Severity Reaction Status Date / Time vortioxetine (From Allergy Unknown Verified 01/27/25 07:45 Trintellix) lorazepam (From Ativan) AdvReac Mild HALLUCINATI Verified 01/27/25 07:45 ON Review of Systems Review of Systems Constitutional: No fever, chills, fatigue, night sweats, weight changes ENT/Mouth: No ear pain, hearing loss, nasal congestion, sinus pain, rhinorrhea, sore throat Eyes: No eye pain, swelling, redness, vision changes, discharge Cardio: No chest pain, palpitations, MUNGUIA, orthopnea, peripheral edema Pulm: No SOB, cough, sputum, wheezing, dyspnea, hemoptysis GI: No nausea, vomiting, hematemesis, diarrhea, constipation, hematochezia, melena, +abdominal pain : No irregular bleeding, dysuria, frequency, urgency, hesitancy, hematuria, flank pain, urinary flow changes, urinary incontinence or retention MSK: No back pain, neck pain, joint pain, myalgias Skin: No lesions, rashes Neuro: No weakness, numbness, paresthesias, LOC, dizziness, headache Psych: No anxiety/panic, depression, SI/HI, AH/VH All other systems reviewed and are negative. [facility] Past Medical History Attestation statement: The following information was validated with the patient. Source: old records reviewed and nursing notes reviewed Social History Social History Smoked in Last 30 Days: No Use of substances other than those prescribed or required for medical reasons: No Advance Directives: Yes Advance Directives Information Provided: No Advance Directives on File: No Do you have a plan to hurt others: No Plan Patient : No Physical Exam ED Vital Signs: Vital Signs - 24 hr 01/27/25 07:42 01/27/25 08:38 01/27/25 12:15 Temperature 98.0 F 98.0 F Pulse Rate 70 59 Respiratory Rate 18 20 18 Blood Pressure 133/85 Pulse Oximetry 100 99 Oxygen Delivery Method Room Air Room Air BMI result Body Mass Index 19.1 vital signs stable General: Well appearing, in no acute distress. Skin: Warm, dry, intact. No rashes or lesions. Head: Normocephalic, atraumatic. EENT: Hearing is intact b/l. Conjunctiva clear. PERRLA. EOM intact. Moist mucous membranes.? Neck: Supple without LAD Cardiac: Chest wall symmetric. RRR Lungs: Normal respiratory effort without accessory muscle use. CTA bilaterally? Abdomen: no overlying skin changes/ deformities. no obvious masses. abdoment is soft, ND, mildly ttp of LUQ/LLQ without rebound or guarding, active bs x4. no cvat. Back: No midline spinous or paraspinal tenderness. No step off deformity. Ext: Upper and lower extremities atraumatic, without tenderness, deformity, swelling or erythema Neuro: AOx3. Normal speech. Ambulating with steady gait. Psych: Appropriate mood and affect. Responds appropriately to questions. Course Course Course Narrative: CBC appears to be around patient's baseline. No acute leukocytosis, there is normocytic anemia with H&H around patient's baseline and above transfusion threshold. Chemistry without acute electrolyte abnormality requiring intervention. No HIGINIO. Liver function WNL. Lipase WNL. Urine without infection or blood. CT abdomen/pelvis without obstruction. There is a small fat containing umbilical hernia. Stable simple pancreatic cystic lesion. Of note, radiologist Dr. gregory reported swirling of the superior mesenteric vein. I did reach out to him regarding this finding. He does not have concern for volvulus - states findings are stable when compared to priors. > on re-evaluation, patient is lying comfortably on exam bed. She is tolerating cheri esteban and crackers. She reports improvement in discomfort after receiving morphine and p.o. oxycodone. Discussed all workup results with patient. At this time, etiology of pain is unclear however it does appear to be her baseline. She follows up with her outpatient providers for chronic abdominal pain. She is relieved with unremarkable work up, anxious for discharge home. She states she is waiting for referral for pain management and does not have any pain control at home. I did advised Tylenol and Motrin however will send home with 3 day prescription of oxycodone. take home narcan provided. Patient has remained stable throughout ED visit today. Discussed worrisome signs and symptoms and when to return to the ED. All questions answered at this time. Patient is agreeable with disposition and stable for discharge. Medical Decision Making Medical Decision Making MDM Narrative: 44 year old female presents to the ED today for evaluation of left sided abdominal pain x3 days. vital signs stable, afebrile. she is overall well appearing and in NAD. on abdominal exam, no overlying skin changes/ deformities. no obvious masses. abdomen is soft, ND, mildly ttp of LUQ/LLQ without rebound or guarding, active bs x4. no cvat. Differential diagnoses: diverticulitis, diverticulosis, UTI, IUP, constipation Abdominal exam without peritoneal signs. No evidence of acute abdomen at this time. Well appearing. Low suspicion for acute hepatobiliary disease (including acute cholecystitis), acute infectious processes (pneumonia, hepatitis, pyelonephritis, PID, TOA), vascular catastrophe, bowel obstruction or viscus perforation, ovarian cyst/ rupture/ torsion, ectopic. Presentation not consistent with other acute, emergent causes of abdominal pain at this time. Plan: labs, UA, CT AP, pain control, fluids, serial reassessment Differential Diagnosis Differential Diagnoses: The differential diagnosis associated with the presentation includes as above. Admission/Observation not indicated Lab Data MDM Lab Attestation statement: I reviewed the patient's lab results. as above. 01/27/25 08:22 01/27/25 08:22 Labs: Lab Results 01/27/25 01/27/25 Range/Units 08:22 08:39 WBC 3.8 L (4.8-10.8) X10*3/uL RBC 3.60 L (4.20-5.50) X10*6/uL Hgb 11.0 L (12.0-16.0) g/dl Hct 32.0 L (37.0-47.0) % MCV 88.9 (80.0-98.0) fL MCH 30.6 (27.0-33.0) pg MCHC 34.4 (31.0-35.0) g/dl RDW 12.8 (11.0-16.0) % Plt Count 229 (160-400) X10*3/uL MPV 10.2 (9.4-12.3) fL Immature Gran % (Auto) 0.3 (0.0-0.4) % Neut % (Auto) 61.8 (45-73) % Lymph % (Auto) 28.6 (20-40) % [place] % (Auto) 8.3 (2-11) % Eos % (Auto) 1.0 (0-4) % Baso % (Auto) 0.0 (0-2) % Lymph # (Auto) 1.1 L (1.2-4.9) X10*3/uL [place] # (Auto) 0.3 (0.1-1.2) X10*3/uL Eos # (Auto) 0.0 (0.0-0.4) X10*3/uL Baso # (Auto) 0.0 (0.0-0.2) X10*3/uL Abs Immat Gran (auto) 0.01 (0.00-0.03) X10*3/uL Absolute Neuts (auto) 2.4 (2.0-8.3) x10*3/uL Absolute Nucleated RBC 0.000 (0.0-0.012) X10*3/uL Nucleated RBC % (auto) 0.0 (0.0-0.2) /100WBC Sodium 141 (135-145) mmol/L Potassium 4.3 (3.3-5.1) mmol/L Chloride 110 H (96-108) mmol/L Carbon Dioxide 26 (22-29) mmol/L Anion Gap 9 L (12-20) BUN 8 L (9-16) mg/dL Creatinine 0.68 (0.5-1.4) mg/dL Estim Creat Clear Calc 85.1 Estimated GFR > 60 Random Glucose 98 (60-115) mg/dL Calcium 8.8 D (8.4-10.2) mg/dL Magnesium 2.0 (1.6-2.6) mg/dL Total Bilirubin 0.3 (0.0-1.0) mg/dL AST 20 (5-31) U/L ALT 8 (0-31) U/L Alkaline Phosphatase 54 (39-117) U/L Total Protein 6.3 L (6.5-8.0) g/dL Albumin 4.0 (3.5-5.0) g/dL Lipase 22 (8-78) U/L Urine Color Dark Yellow Urine Appearance Turbid Urine pH 8.5 (5.0-9.0) Ur Specific [place] 1.020 (1.005-1.025) Urine Protein Negative (Neg-Trace) mg/dL Urine Glucose (UA) Negative (Negative) mg/dL Urine Ketones Negative (Negative) mg/dL Urine Blood Negative (Negative) Urine Nitrite Negative (Negative) Ur Leukocyte Esterase Negative (Negative) Urine Test NEGATIVE (NEGATIVE) Independent Interpretation I performed an independent interpretation of an: CT Scan Interpretation: CT a/p without bowel obstruction Radiology Impression Discussion of test interpretation with radiology: I have reviewed the radiologist's reading. Radiologist Impression: Date of Service: 01/27/25 Procedure(s): CT abdomen pelvis w IV con Accession Number(s): [id number] cc: Radha Conway; Wanda Hart MD~ Report Number: [id number]: Total DLP = 316.00 mGy-cm EXAMINATION: CT ABDOMEN AND PELVIS WITH CONTRAST CLINICAL INFORMATION: Left sided abdominal pain. COMPARISON: January 27, 2023. TECHNIQUE: Multidetector volumetric images were obtained from the superior aspect of the liver through the pubic symphysis following administration 85 mL of Omnipaque 350 intravenous contrast. Sagittal and coronal reformatted images were obtained on the technologist's workstation. Oral contrast: No This CT examination was performed using dose optimization techniques as appropriate, variously including the following: *Automated exposure control *Adjustment of mA and/or kV according to patient size (this includes techniques or standardized protocols for targeted exams where dose is matched to indication/reason for exam; i.e. extremities or head) *Use of iterative reconstruction technique. DLP: 316 mGy centimeter. FINDINGS: LUNG BASES: No acute airspace disease. LIVER, GALLBLADDER, AND BILIARY TREE: Liver measures 14 cm. No enhancing mass. Portal veins, hepatic veins and intrahepatic portion of the IVC are patent. No intrahepatic biliary ductal dilatation. Gallbladder is contracted. No pericholecystic fluid collection or gallbladder wall thickening. Common bile duct measures 4 mm. PANCREAS: There is a cluster of well-defined, 7 and 4 mm fluid density in the inferior aspect of the head of the pancreas/uncinate process junction. No main pancreatic ductal dilatation. No peripancreatic fluid collection. SPLEEN: 8 cm. No focal lesion. ADRENAL GLANDS: No nodular lesions. KIDNEYS AND URETERS: No hydronephrosis. No nephrolithiasis. No gross renal mass. Normal enhancement pattern of the renal cortex. The uterus are not dilated. BLADDER: Fluid-filled. GASTROINTESTINAL TRACT: Sutures in the right hemiabdomen probably involving the hepatic colonic flexure. No intestinal obstruction pattern. No pneumatosis intestinalis. No intestinal wall thickening. Terminal ileum is normal. Collapsed appearance of the left hemicolon. Appendix is normal. Nonspecific gas and fluid-filled mildly prominent distal small bowel loops. No pneumoperitoneum. Small amount of ascites in the cul-de-sac. ABDOMINAL WALL: Small fat-containing umbilical hernia. LYMPH NODES: No mesenteric or retroperitoneal lymphadenopathy. VASCULAR: Status post stenting, left main renal vein into the IVC with grossly normal patency. Multiple coil embolization left ovarian vein. There is swirling of the superior mesenteric vein. 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 PELVIC VISCERA: Heterogeneous appearance of the uterus in indifferent position. There is no intrauterine contraceptive device. No gross masses in either ovary. OSSEOUS STRUCTURES: No acute fracture or listhesis in the axial skeleton. Bony pelvis is intact. Coxofemoral joints are intact with normal alignment. Spina bifida S1 and S2 without meningocele and/or pseudomeningocele.. CT/CT abdomen pelvis w IV con IMPRESSION: Small fat-containing umbilical hernia. No intestinal obstruction pattern. Consider mild enteritis in the correct clinical settings. Stable subcentimeter simple pancreatic cystic lesions. Status post stenting left main renal vein and coronal embolization left ovarian vein. Status post removal intrauterine contraceptive device. Fleischner guidelines were followed. Electronically signed by: Rodney Gregory MD 01/27/2025 10:16 AM EDT External Record Review External record reviewed: Inpatient record Prescription Management I considered prescription management with: Pain Medication (oxycodone) Social Determinants Patient?s care significantly limited by Social Determinants of Health including: Other Social Determinant of Health Medications Administered Discontinued Medications Generic Name Dose Route Start Last Admin Trade Name Freq PRN Reason Stop Dose Admin Sodium Chloride 1,000 mls @ 999 mls/hr 01/27/25 08:30 01/27/25 09:43 Ns IV 01/27/25 09:30 Infused .Q1H1M MAGEN Infusion Iohexol 100 ml 01/27/25 09:40 01/27/25 09:41 Iohexol 350 Mg/Ml 100 Ml Infus..Btl IV 01/27/25 09:41 85 ml ONCE ONE Administration Morphine Sulfate 4 mg 01/27/25 08:28 01/27/25 08:38 Morphine Sulfate 4 Mg/Ml Cartridge IVPUSH 01/27/25 08:29 4 mg ONCE ONE Administration Protocol Naloxone HCl 8 mg 01/27/25 12:08 01/27/25 12:17 Naloxone Hcl Nasal Take Home 4 Mg [place] NOSTRILALT 01/27/25 12:09 8 mg ONCE ONE Administration Ondansetron HCl 4 mg 01/27/25 08:04 01/27/25 08:18 Ondansetron Odt 4 Mg Tab.Rapdis TRANSLINGU 01/27/25 08:05 4 mg ONCE ONE Administration Oxycodone HCl 5 mg 01/27/25 10:39 01/27/25 11:18 Oxycodone Hcl Immed Release 5 Mg Tablet PO 01/27/25 10:40 5 mg ONCE ONE Administration Critical Care Time Critical Care Time Critical Care Time: Yes Total Critical Care Time: 33 Attestation: Critical care time in the amount of 33 minutes has been provided to the patient in terms of direct patient care, frequent reevaluation on IV morphine, review and interpretation of medical data and results, and management of potentially life-threatening conditions. This is all outside of any medical procedures. Discharge Plan Discharge Clinical Impression: Abdominal pain Patient Disposition: Home, Self-Care Instructions: Abdominal Pain (ED) Additional Instructions: Your workup today is reassuring Your symptoms improved with medication today Continue taking tylenol/ motring. I am sending oxycodone, a controlled pain medication, to your pharmacy for you to take for breakthrough pain control. Please use this with caution as opioid pain medications have addictive properties. I have also provided you with Narcan as accidental overdoses on oxycodone can occur. Opioid pain medications can often cause constipation. I recommend taking this with an over the counter laxative and/or stool softener to help move your bowels. Follow up with your outpatient providers as scheduled Return with any new or worsening symptoms In the case of an emergency call 911 Prescriptions: New oxycodone 5 mg tablet 5 mg PO Q8H PRN (Reason: pain (scale score 7-10)) 3 Days Qty: 9 0RF Rx Instructions: Partial Fill upon patient request. No Action cefuroxime axetil 250 mg tablet 250 mg PO BID 7 Days Qty: 14 0RF ibuprofen 600 mg tablet 600 mg PO Q6H PRN (Reason: fever or pain) Qty: 30 0RF Referrals: Wanda Hart MD [Primary Care Provider, Internal Medicine] Print Language: Bulgarian
[2025-01-27] MEDS: Ondansetron ODT 4 MG TAB.RAPDIS TRANSLINGU (08:18)
[2025-01-27 08:30] LABS: MANUAL DIFF FLAG NO
[2025-01-27 08:38] VITALS: RESP 20
[2025-01-27] MEDS: 0.9 % Sodium Chloride 1,000 ML 999 ML IV (08:38)
[2025-01-27] MEDS: Morphine Sulfate 4 MG/ML CARTRIDGE IVPUSH (08:38)
[2025-01-27 08:39] LABS: Imm Gran Abs Auto 0.01 X10*3/uL (0.00-0.03); Imm Gran Pct Auto 0.3 % (0.0-0.4); Lymphocytes Absolute Auto 1.1 X10*3/uL (1.2-4.9); Lymphocytes Percent Auto 28.6 % (20-40); Mean Corpuscular HGB Conc 34.4 g/dl (31.0-35.0); Mean Corpuscular Hemoglobin 30.6 pg (27.0-33.0); Mean Corpuscular Volume 88.9 fL (80.0-98.0); Mean Platelet Volume 10.2 fL (9.4-12.3); Monocytes Absolute Auto 0.3 X10*3/uL (0.1-1.2); Monocytes Percent Auto 8.3 % (2-11); Neutrophils Absolute Auto 2.4 x10*3/uL (2.0-8.3); Neutrophils Percent Auto 61.8 % (45-73); Platelet Count 229 X10*3/uL (160-400); Red Cell Distribution Width 12.8 % (11.0-16.0); White Blood Count 3.8 X10*3/uL (4.8-10.8)
[2025-01-27 08:47] LABS: Alanine Aminotransferase 8 U/L (0-31); Alkaline Phosphatase 54 U/L (39-117); Anion Gap 9 (12-20); Aspartate Amino Transferase 20 U/L (5-31); Bilirubin Total 0.3 mg/dL (0.0-1.0); Blood Urea Nitrogen 8 mg/dL (9-16); Calcium 8.8 mg/dL (8.4-10.2); Carbon Dioxide 26 mmol/L (22-29); Chloride 110 mmol/L (96-108); Creatinine Clr Calc Pharmacy 85.1; Estimated Glomerular Filt Rate > 60; Glucose Random 98 mg/dL (60-115); Lipase 22 U/L (8-78); Potassium 4.3 mmol/L (3.3-5.1); Sodium 141 mmol/L (135-145); Total Protein 6.3 g/dL (6.5-8.0)
[2025-01-27 08:49] LABS: UPreg QC Valid YES; Urine Pregnancy NEGATIVE (NEGATIVE)
[2025-01-27 08:50] LABS: Appearance Urine Turbid; Color Urine Dark Yellow; Glucose Urine UA Negative (Negative); Leukocyte Esterase Urine Negative (Negative); Nitrite Urine Negative (Negative); PH 8.5 (5.0-9.0); Urine Blood Negative (Negative); Urine Ketones Negative (Negative); Urine Protein Negative (Neg-Trace)
[2025-01-27] MEDS: iohexoL 350 MG/ML 100 ML INFUS..BTL IV (09:41)
[2025-01-27] MEDS: oxyCODONE HCl Immed Release 5 MG TABLET PO (11:18)
[2025-01-27 12:15] VITALS: PULSE 59; RESP 18; TEMP 36.7; O2SAT 99
[2025-01-27] MEDS: Naloxone HCl Nasal TAKE HOME 4 MG SPRAY 8 MG NOSTRILALT (12:17)
[2025-01-27 12:31] VITALS: BP 112/72; PULSE 59; RESP 18; TEMP 36.7; O2SAT 99
== END 2025-01-27 12:32 | disposition home or self-care (01) ==
PROVIDERS: Physician Assistant Medical; Emergency Provider Emergency Medicine; PCP Family Medicine
DX: R10.32 Left lower quadrant pain (principal); R10.12 Left upper quadrant pain; R11.2 Nausea with vomiting, unspecified; Z79.899 Other long term (current) drug therapy
CPT/HCPCS: 36415; 74177; 80053; 81003; 81025; 83690; 83735; 85025; 96361; 96374; 99284; 99285; 99291; J2270; Q9967

== ENCOUNTER → 2025-01-27 09:18 | Outpatient (BNV) | payer OTHER, SELFPAY | PROVIDERS: Emergency Provider Emergency Medicine; PCP Family Medicine; Visit Provider Radiology Diagnostic Radiology | DX: K42.9 Umbilical hernia without obstruction or gangrene (principal); K86.2 Cyst of pancreas | CPT/HCPCS: 74177 ==

== ENCOUNTER 2025-02-12 09:39 | Emergency (ER) | payer OTHER, SELFPAY ==
--- NOTE | 2025-02-12 | ECG_ITS ---
Test Reason : chest pain Blood Pressure : */* mmHG Vent. Rate : 78 BPM Atrial Rate : 78 BPM P-R Int : 114 ms QRS Dur : 82 ms QT Int : 372 ms P-R-T Axes : 55 80 40 degrees QTcB Int : 424 ms Normal sinus rhythm Normal ECG When compared with ECG of 04-Sep-2019 19:30, No significant change was found Referred By: Generic ED Physician Electronically Signed By: Emiliano Murrieta
--- NOTE | ~2025-02-12 | XR_ITS ---
EXAMINATION: XR CHEST 2 VIEWS HISTORY: chest pain COMPARISON: There are no prior studies available for comparison. FINDINGS: PA and lateral views of the chest are submitted. The lungs are expanded and clear. There is no pleural effusion, pneumothorax, or pulmonary vascular congestion. The heart is normal in size. The bones are intact. A vascular stent is seen in the upper abdomen. XR/XR chest 2V IMPRESSION: Clear lungs. Electronically signed by: Ankit Acosta MD 02/12/2025 11:05 AM EDT
[2025-02-12 09:48] VITALS: BP 123/85; PULSE 77; RESP 16; TEMP 36.2; O2SAT 100; BMI 18.8
--- NOTE | 2025-02-12 09:48 | ED.GENADULT ---
HPI - General Adult General Chief complaint: Chest Pain Stated complaint: chest pain Time Seen by Provider: 02/12/25 09:45 Source: patient, family (), RN notes reviewed and old records reviewed Mode of arrival: ambulatory Limitations: no limitations History of Present Illness ED Provider: Smith HPI narrative: Patient is a 44-year-old female with history of hypothyroid, gastroparesis, Ehler's Danlos syndrome, visceroptosis, seizure disorder presenting to the emergency department with complaint of sudden onset left posterior shoulder pain which began around 0745 am today. Pain radiating to left chest and left arm. Worse with movement and deep inspiration. Not on OCPs, denies smoking history, denies recent travel. Denies palpitations. Reports chronic abdominal pain, denies any worsening, denies vomiting or diarrhea. Denies recent cough, dyspnea, fevers. MD complaint: chest pain Onset (ago): hour(s) Related Data Previous Rx's ?Medication ?Instructions ?Recorded cefuroxime axetil 250 mg tablet 250 mg PO BID 7 days #14 tabs 01/27/23 ibuprofen 600 mg tablet 600 mg PO Q6H PRN fever or pain 01/27/23 #30 tabs oxycodone 5 mg tablet 5 mg PO Q8H PRN pain (scale score 01/27/25 7-10) 3 days #9 tabs cyclobenzaprine 5 mg tablet 5 mg PO TID PRN muscle spasm #10 02/12/25 tabs naproxen 500 mg tablet 500 mg PO BID #14 tabs 02/12/25 Allergies Allergy/AdvReac Type Severity Reaction Status Date / Time vortioxetine (From Allergy Unknown Verified 02/12/25 09:54 Trintellix) lorazepam (From Ativan) AdvReac Mild HALLUCINATI Verified 02/12/25 09:54 ON Review of Systems Review of Systems: As per HPI Yes all other systems are reviewed and are negative Constitutional: Constitutional: Reports as per HPI [facility] Social History Social History Advance Directives: No Advance Directives Information Provided: Yes Physical Exam ED Vital Signs: Vital Signs - 24 hr 02/12/25 09:48 02/12/25 10:38 02/12/25 12:06 Temperature 97.2 F 97.5 F Pulse Rate 77 60 Respiratory Rate 16 18 15 Blood Pressure 123/85 108/62 Pulse Oximetry 100 100 Oxygen Delivery Method Room Air Room Air BMI result Body Mass Index 18.8 Vital signs have been reviewed and appear to be correct. Blood pressure normal. Heart rate normal. Respiratory rate normal. Temperature normal. Oxygen saturation normal. Const General: cooperative, healthy appearing and no acute distress Orientation/consciousness: oriented to person, oriented to place, oriented to time and patient oriented x3 Limitations: no limitations HENNE Head: Yes normocephalic and Yes atraumatic Ears: external ears normal General nose exam: Normal external nose present Face and sinus: Yes face symmetric Mouth: oropharynx normal and moist mucous membranes Throat: Yes uvula midline Eyes Pupils: Equal, round and reactive pupils present Neck Neck: Yes normal visual inspection and Yes supple Resp Effort & Inspection: normal respiratory effort and able to speak in complete sentences Auscultation: clear to auscultation bilaterally Cardio Rate: regular rate Rhythm: regular rhythm Heart sounds: S1 normal heart sound present and S2 normal heart sound present GI Palpation (GI): Soft to palpation and nontender Auscultation: normoactive bowel sounds General: Yes no CVA tenderness Back/Spine/Pelvis Back: no CVA tenderness Skin General skin exam: elasticity normal and turgor normal Neuro General: oriented to person, oriented to place, oriented to time, patient oriented x3, moves all extremities, no focal motor deficits and CN's II-XI intact bilaterally Cranial nerves: Yes Equal, round and reactive pupils present Cognition (Neuro): normal cognition Extrem General: Yes full ROM, Yes no pedal edema and Yes no calf tenderness Psych Mental Status: mental status grossly normal Affect: normal affect Thought process: Normal thought process present Medications Administered Discontinued Medications Generic Name Dose Route Start Last Admin Trade Name Freq PRN Reason Stop Dose Admin Morphine Sulfate 4 mg 02/12/25 10:03 02/12/25 10:38 Morphine Sulfate 4 Mg/Ml Cartridge IVPUSH 02/12/25 10:04 4 mg ONCE ONE Administration Protocol Ondansetron HCl 4 mg 02/12/25 10:03 02/12/25 10:39 Ondansetron Hcl 4 Mg/2 Ml Vial IVPUSH 02/12/25 10:04 4 mg ONCE ONE Administration Medical Decision Making Medical Decision Making MDM Narrative: Patient is a 44-year-old female with history of hypothyroid, gastroparesis, Ehler's Danlos syndrome, visceroptosis, seizure disorder presenting to the emergency department with complaint of sudden onset left posterior shoulder pain which began around 0745 am today. On exam patient is awake, A+Ox3, VS WNL, afebrile, normal neurological exam without focal deficits, physical exam findings as above. Given reported symptoms and physical exam findings, initial differential includes but is not limited to ACS, PE, pneumonia, pneumothorax, musculoskeletal pain. Labs notable for no leukocytosis, no anemia, no significant electrolyte abnormalities, negative troponin x2, negative D-dimer. EKG shows NSR. X-ray chest notable for no evidence of pneumonia, pneumothorax. My interpretation is in agreement with the radiologist's interpretation. Patient states pain improved with morphine given in the ED. results discussed with patient and all questions answered. Feel she is stable for discharge home at this time, pain likely musculoskeletal. Will send prescription for Flexeril and naproxen. Patient is specifically requesting no opiate medication for pain. Also offered to send prescription for topical lidocaine patches but patient states she has adequate supply at home. Advised follow up with PCP for any ongoing symptoms. Return precautions discussed at bedside. Patient and verbalized understanding of and agreement with plan. Differential Diagnosis Differential Diagnoses: The differential diagnosis associated with the presentation includes as per [facility] Admission/Observation Consideration of admission/observation: Escalation of care including admission/observation considered Patient would have been admitted to the hospital had their clinical presentation warranted hospital admission. Lab Data [facility] Lab Attestation statement: I reviewed the patient's lab results. as per [facility] 02/12/25 10:13 02/12/25 10:13 Labs: Lab Results 02/12/25 02/12/25 02/12/25 Range/Units 10:13 10:14 12:03 WBC 4.6 L (4.8-10.8) X10*3/uL RBC 4.07 L (4.20-5.50) X10*6/uL Hgb 12.4 (12.0-16.0) g/dl Hct 36.3 L (37.0-47.0) % MCV 89.2 (80.0-98.0) fL MCH 30.5 (27.0-33.0) pg MCHC 34.2 (31.0-35.0) g/dl RDW 13.1 (11.0-16.0) % Plt Count 257 (160-400) X10*3/uL MPV 10.1 (9.4-12.3) fL Immature Gran % (Auto) 0.2 (0.0-0.4) % Neut % (Auto) 62.0 (45-73) % Lymph % (Auto) 27.6 (20-40) % [place] % (Auto) 9.3 (2-11) % Eos % (Auto) 0.9 (0-4) % Baso % (Auto) 0.0 (0-2) % Lymph # (Auto) 1.3 (1.2-4.9) X10*3/uL [place] # (Auto) 0.4 (0.1-1.2) X10*3/uL Eos # (Auto) 0.0 (0.0-0.4) X10*3/uL Baso # (Auto) 0.0 (0.0-0.2) X10*3/uL Abs Immat Gran (auto) 0.01 (0.00-0.03) X10*3/uL Absolute Neuts (auto) 2.9 (2.0-8.3) x10*3/uL Absolute Nucleated RBC 0.000 (0.0-0.012) X10*3/uL Nucleated RBC % (auto) 0.0 (0.0-0.2) /100WBC PT 10.3 L (10.9-12.4) SEC INR 0.9 (0.9-1.1) D-Dimer High Sensitivty < 150 NG/ML Sodium 138 (135-145) mmol/L Potassium 4.0 (3.3-5.1) mmol/L Chloride 105 (96-108) mmol/L Carbon Dioxide 27 (22-29) mmol/L Anion Gap 10 L (12-20) BUN 7 L (9-16) mg/dL Creatinine 0.82 (0.5-1.4) mg/dL Estim Creat Clear Calc 70.6 Estimated GFR > 60 Random Glucose 98 (60-115) mg/dL Calcium 9.0 (8.4-10.2) mg/dL Magnesium 2.0 (1.6-2.6) mg/dL Total Bilirubin 0.4 (0.0-1.0) mg/dL AST 21 (5-31) U/L ALT 16 (0-31) U/L Alkaline Phosphatase 67 (39-117) U/L Troponin I High Sens < 2.7 < 2.7 (<3.5-17.0) ng/L B-Natriuretic Peptide < 10 (<100) pg/mL Total Protein 7.2 (6.5-8.0) g/dL Albumin 4.6 (3.5-5.0) g/dL Lipase 20 (8-78) U/L Beta HCG, Quant < 2 mIU/mL Influenza Type A (PCR) NEGATIVE (Negative) Influenza Type B (PCR) NEGATIVE (Negative) RSV RNA Qual (PCR) NEGATIVE (Negative) SARS-CoV-2 RNA (RT-PCR) NEGATIVE (Negative) Independent Interpretation I performed an independent interpretation of an: EKG (Normal sinus rhythm, rate 70 beats per minute, normal AR interval and QTC, no significant change from prior, no evidence of STEMI) and Plain X-Ray Interpretation: No evidence of pneumonia or pneumothorax on chest x-ray. Radiology Impression Discussion of test interpretation with radiology: I have reviewed the radiologist's reading. Radiologist Impression: XR/XR chest 2V IMPRESSION: Clear lungs. External Record Review External record reviewed: Inpatient record, Office record, Outpatient record and Outside ED record Prescription Management I considered prescription management with: Pain Medication and Other Critical Care Time Critical Care Time Critical Care Time: Yes Total Critical Care Time: 33 Attestation: I have personally provided critical care time exclusive of time spent on separately billable procedures. Time includes review of lab data, radiology results, discussion with consultants, and monitoring for potential decompensation. Intervention performed as documented. Discharge Plan Discharge Clinical Impression: Atypical chest pain Patient Disposition: Home, Self-Care Instructions: Chest Pain (DC), Noncardiac Chest Pain (ED) Additional Instructions: You were evaluated in the emergency department today for chest pain. Your evaluation,including labs, chest x-ray, and EKG has shown no signs of medical conditions requiring emergent intervention at this time, however we recommend that you follow-up with your primary care physician for further testing as an outpatient if your symptoms persist. You are being prescribed naproxen which is an anti-inflammatory medication as well as cyclobenzaprine which is a muscle relaxer. He take these medications as prescribed. Do not drink alcohol while taking the muscle relaxer as this can cause excessive sedation. Return to the emergency department if you experience worsening or uncontrolled chest pain, shortness of breath, lightheadedness, feeling faint, loss of consciousness, nausea, vomiting, or any other concerning symptoms. Prescriptions: New cyclobenzaprine 5 mg tablet 5 mg PO TID PRN (Reason: muscle spasm) Qty: 10 0RF naproxen 500 mg tablet 500 mg PO BID Qty: 14 0RF No Action cefuroxime axetil 250 mg tablet 250 mg PO BID 7 Days Qty: 14 0RF ibuprofen 600 mg tablet 600 mg PO Q6H PRN (Reason: fever or pain) Qty: 30 0RF oxycodone 5 mg tablet 5 mg PO Q8H PRN (Reason: pain (scale score 7-10)) 3 Days Qty: 9 0RF Rx Instructions: Partial Fill upon patient request. Print Language: Telugu
[2025-02-12 10:22] LABS: MANUAL DIFF FLAG NO
[2025-02-12 10:24] LABS: Hematocrit 36.3 % (37.0-47.0); Hemoglobin 12.4 g/dl (12.0-16.0); Imm Gran Abs Auto 0.01 X10*3/uL (0.00-0.03); Imm Gran Pct Auto 0.2 % (0.0-0.4); Lymphocytes Absolute Auto 1.3 X10*3/uL (1.2-4.9); Mean Corpuscular HGB Conc 34.2 g/dl (31.0-35.0); Mean Corpuscular Hemoglobin 30.5 pg (27.0-33.0); Mean Corpuscular Volume 89.2 fL (80.0-98.0); NRBC Abs Auto 0.000 X10*3/uL (0.0-0.012); NRBC Pct Auto 0.0 /100WBC (0.0-0.2); Platelet Count 257 X10*3/uL (160-400); Red Blood Count 4.07 X10*6/uL (4.20-5.50); White Blood Count 4.6 X10*3/uL (4.8-10.8)
[2025-02-12 10:30] LABS: INTERNATIONAL NORM RATIO 0.9 (0.9-1.1); Prothrombin Time 10.3 SEC (10.9-12.4)
[2025-02-12 10:33] LABS: D Dimer High Sensitivity < 150 NG/ML
[2025-02-12 10:38] VITALS: RESP 18
[2025-02-12 10:39] LABS: Alanine Aminotransferase 16 U/L (0-31); Albumin Level 4.6 g/dL (3.5-5.0); Alkaline Phosphatase 67 U/L (39-117); Anion Gap 10 (12-20); Aspartate Amino Transferase 21 U/L (5-31); Blood Urea Nitrogen 7 mg/dL (9-16); Calcium 9.0 mg/dL (8.4-10.2); Carbon Dioxide 27 mmol/L (22-29); Chloride 105 mmol/L (96-108); Creatinine Clr Calc Pharmacy 70.6; Estimated Glomerular Filt Rate > 60; Lipase 20 U/L (8-78); Magnesium 2.0 mg/dL (1.6-2.6); Potassium 4.0 mmol/L (3.3-5.1); Sodium 138 mmol/L (135-145); Total Protein 7.2 g/dL (6.5-8.0)
[2025-02-12 10:44] LABS: Troponin-I High Sensitivity < 2.7 ng/L (<3.5-17.0)
[2025-02-12 10:45] LABS: B Type Natriuretic Peptide < 10 pg/mL (<100)
--- OUTSIDE RECORDS SUMMARY | 2025-02-12 10:59 | XMS_ITS | Data Portability ---
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 She has had ophthalmic migraines before but typically they last 10 or 15 minutes and have no other symptoms associated with them. This time, she seems to have a persistent vomiting and extreme nausea. Patient states that it is possible she is after attempts at intrauterine placement of the neck. Urine testing is negative for . Blood pressure approximately 130/80. Lungs are clear. Cardiac exam-regular rate and rhythm. Abdomen is soft and nontender. Assessment-acute vomiting episode with persistent nausea after what appears to be an ophthalmic migraine. Plan-patient is given Phenergan 25 mg IM, but vomiting and nausea persisted. I advised referral to the emergency room for further evaluation and she and her are comfortable with this. [email or web address] Not available 09/08/2014 10:19:25 Plan of Treatment Reminders Order Date Submit Date Provider Last Modified By Organization Details Last Modified Time Details Appointments None recorded . Lab None recorded . Referral medical genetici st referral 2022 023 [facility], [address] [place] [address], [address], 16:41:02 Procedures None recorded . Surgeries None recorded . Imaging None recorded . Medication Orders famotidi ne 20 mg tablet 2022 023 [id number], [address] [facility], [place], [address], 3 09:05:18 Phenerga n 25 mg/mL injectio n solution 2014 015 aforesteire Not available 3 08:18:22 Patient TargetsNo targets recorded. Patient InstructionsNo instructions recorded. Reason for Referral Pharmacy Intern Referral for Visceroptosis Referring Physician: Naomie Villar, Family Medicine, Encounter Date: 09/20/2022 Results Created Date Observation Date Name Description Value Unit Range Abnormal Flag Note LastModifiedBy Organization Detail LastModifiedTime 01/30/20 15 01/29/2015 TSH, serum or plasm a TSH 1.35 uIU/m L 0.50-6 .00 The Ameri can [employer]le ge of Endoc rinol ogy and Ameri can Thyro id Assoc iatio n recom mend goal TSH value s betwe en 0.4-4 .0 mIU/m L. Not Available [address], [address], 01/29/2015 11:57:11 01/30/20 15 01/29/2015 gluco se, QN [mass /volu me], serum or plasm a glucose 90 mg/dL 70-100 Not Available [address], [address], 01/29/2015 12:00:43 01/30/20 15 01/29/2015 CK (crea isha kinas e), total , serum CPK 106.0 U/L 21.0-2 15.0 Not Available [address], [address], 01/29/2015 12:00:43 01/30/20 15 02/02/2015 tissu e trans gluta yolanda e iga Ab, serum tissue transglutami nase Ab, IgA 1 U/mL normal Value Inter preta tion ----- ----- ----- ---- <4 No Antib sallie Detec hanna > or = 4 Antib sallie Detec hanna Not Available [facility] [address], [place], [address], 02/02/2015 19:28:58 01/30/20 15 02/02/2015 vitam in E, serum alpha-tocoph neelam 18.1 mg/L 5.7-19 .9 Level s of alpha -toco phero l <5 mg/L are consi stent with Vitam in E defic iency in adult s. 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 g Ab, serum acetylcholin e receptor binding antibody <0.30 nmol/ L <=0.30 Refer ence Range : Negat anai: <=0.3 0 nmol/ L Equiv ocal: 0.31- 0.49 nmol/ L Posit anai: >=0.5 0 nmol/ L Not Available [facility] [address], [place], [address], 02/02/2015 19:29:00 01/30/20 15 02/03/2015 vitam in B12, serum vitamin B12 1695 pg/mL 230-10 50 high Not Available [address], [address], 02/03/2015 10:43:50 01/30/20 15 02/16/2015 vitam in D, 25-hy droxy , total , serum vitamin D, 25-hydroxy, EIA 37.1 NG/mL 20.0-9 9.9 Thera py is based on measu remen t of total 25-OH D, with level s less than 20 ng/mL indic ative of Vitam in D defic iency . Level s betwe en 20ng/ mL and 30 ng/mL sugge st insuf ficie ncy. Optim al Level s are great er than 30 ng/mL . Not Available [address], [address], 02/16/2015 09:35:44 03/09/20 15 03/09/2015 TSH, serum or plasm a TSH 0.32 uIU/m L 0.50-6 .00 low The Ameri can [employer]le ge of Endoc rinol ogy and Ameri can Thyro id Assoc iatio n recom mend goal TSH value s betwe en 0.4-4 .0 mIU/m L. Not Available [address], [address], 03/09/2015 12:47:44 06/11/20 15 06/13/2015 TSH, serum or plasm a TSH 0.64 uIU/m L 0.50-6 .00 The [employer] can [employer] ge [facility] Endoc rinol ogy and Ameri can Thyro id Assoc iatio n recom mend goal TSH value s betwe en 0.4-4 .0 mIU/m L. Not Available [address], [address], 06/13/2015 13:44:25 07/07/20 15 07/08/2015 TSH, serum or plasm a TSH 0.55 uIU/m L 0.50-6 .00 The [employer] can [employer] ge [employer] Endoc rinol ogy and Ameri can Thyro id Assoc iatio n recom mend goal TSH value s betwe en 0.4-4 .0 mIU/m L. Not Available [address], [address], 07/08/2015 10:54:13 08/09/19 16 08/10/2015 TSH, serum or plasm a TSH 0.46 uIU/m L 0.50-6 .00 low The [employer] ge [employer] Endoc rinol ogy and Ameri can Thyro id Assoc iatio n recom mend goal TSH value s betwe en 0.4-4 .0 mIU/m L. Not Available [address], [address], 08/10/2015 10:21:08 09/13/19 16 09/13/2015 TSH, serum or plasm a TSH 0.32 uIU/m L 0.50-6 .00 low The [employer] can [employer] ge [employer] Endoc rinol ogy and Ameri can Thyro id Assoc iatio n recom mend goal TSH value s betwe en 0.4-4 .0 mIU/m L. Not Available [address], [address], 09/13/2015 16:54:06 10/12/19 16 10/12/2015 TSH, serum or plasm a TSH 0.42 uIU/m L 0.50-6 .00 low The [employer] can [employer]le ge of Endoc rinol ogy and Ameri can Thyro id Assoc iatio n recom mend goal TSH value s betwe en 0.4-4 .0 mIU/m L. Not Available [address], [address], 10/12/2015 16:35:28 11/11/19 16 11/11/2015 TSH, serum or plasm a TSH 0.22 uIU/m L 0.50-6 .00 low The [employer] can [employer]le ge of Endoc rinol ogy and Ameri can Thyro id Assoc iatio n recom mend goal TSH value s betwe en 0.4-4 .0 mIU/m L. Not Available [address], [address], 11/11/2015 12:49:59 12/09/19 16 12/09/2015 TSH, serum or plasm a TSH 0.35 uIU/m L 0.50-6 .00 low The [employer]i can Colle ge of Endoc rinol ogy and Ameri can Thyro id Assoc iatio n recom mend goal TSH value s betwe en 0.4-4 .0 mIU/m L. Not Available [address], [address], 12/09/2015 12:38:11 01/07/20 16 01/07/2016 TSH, serum or plasm a TSH 0.87 uIU/m L 0.50-6 .00 The [employer] can [employer]le ge of Endoc rinol ogy and Ameri can Thyro id Assoc iatio n recom mend goal TSH value s betwe en 0.4-4 .0 mIU/m L. Not Available [address], [address], 01/07/2016 12:02:52 02/10/20 16 02/11/2016 TSH, serum or plasm a TSH 0.41 uIU/m L 0.50-6 .00 low The [employer] can [employer] ge [employer] Endoc rinol ogy and Ameri can Thyro id Assoc iatio n recom mend goal TSH value s betwe en 0.4-4 .0 mIU/m L. Not Available [address], [address], 02/11/2016 09:04:08 05/16/20 16 05/16/2016 TSH, serum or plasm a TSH 0.53 uIU/m L 0.50-6 .00 The [employer]i can Colle ge of Endoc rinol ogy and Ameri can Thyro id Assoc iatio n recom mend goal TSH value s betwe en 0.4-4 .0 mIU/m L. Not Available [address], [address], 05/16/2016 16:25:13 12/01/19 17 12/01/2016 TSH, serum or plasm a TSH 0.20 uIU/m L 0.50-6 .00 low The Ameri can Colle ge of Endoc rinol ogy and Ameri can Thyro id Assoc iatio n recom mend goal TSH value s betwe en 0.4-4 .0 mIU/m L. Not Available [address], [address], 12/01/2016 12:43:43 06/14/20 18 06/22/2018 calpr otect in, stool calprotectin , stool 106.5 mcg/g <15.6 25 - 50 mcg/g Becky l >50 - 120 mcg/g Borde rline >120 mcg/g Abnor mal Calpr otect in in Crohn 's disea se and ulcer ative colit is can be five to sever al thous and times above the refer ence popul ation (50 mcg/g or less) . Level s are usual ly 50 mcg/g or less in healt hy patie nts and with irrit able bowel syndr ome. Repea t testi ng in 4-6 weeks is reese suggs for borde rline value s. Not Available [facility] [address], [place], [address], 06/22/2018 01:52:13 09/27/19 19 09/27/2018 bun (bloo d urea nitro gen), serum or plasm a BUN 6 mg/dL 7-18 low Not Available [address], [address], 09/27/2018 11:10:16 09/27/19 19 09/27/2018 creat inine , serum or plasm a creatinine 0.8 mg/dL 0.8-1. 3 Not Available [address], [address], 09/27/2018 11:10:17 09/27/19 19 09/27/2018 creat inine , serum or plasm a GFR -non 89.0 mL/mi n Recom sharee d GFR by the Natio nal Kidne y Found ation >60 mL/mi n/1.7 3m2 - Becky l <60 mL/mi n/1.7 3m2 - Chron ic Kidne y Disea se <15 mL/mi n/1.7 3m2 - Kidne y Failu re Not Available [address], [address], 09/27/2018 11:10:17 09/27/19 19 09/27/2018 creat inine , serum or plasm a GFR - if 102.3 mL/mi n For Afric an Ameri can patie nts: Resul ts Multi plied by 1.21 Not Available [address], [address], 09/27/2018 11:10:17 09/27/19 19 09/27/2018 T3, free, serum or plasm a free T3 3.3 pg/mL 2.0-4. 9 Not Available [address], [address], 09/27/2018 11:32:26 09/27/19 19 09/27/2018 T4, free, serum free T4 1.19 NG/dL 0.75-1 .54 Not Available [address], [address], 09/27/2018 11:32:27 09/27/19 19 09/27/2018 TSH, serum or plasm a TSH 1.16 uIU/m L 0.50-6 .00 The [place] Colle ge of Endoc rinol ogy and Ameri can Thyro id Assoc iatio n recom mend goal TSH value s betwe en 0.4-4 .0 mIU/m L. Not Available [address], [address], 09/27/2018 12:15:47 02/25/2002/24/2019 CBC WBC 4.73 K/ L 3.98-1 0.04 Not Available [address], [address], 02/24/2019 15:15:42 02/25/20 19 02/24/2019 CBC RBC 3.95 M/ L 3.93-5 .22 Not Available [address], [address], 02/24/2019 15:15:42 02/25/2002/24/2019 CBC HGB 11.4 g/dL 11.2-1 5.7 Not Available [address], [address], 02/24/2019 15:15:42 02/25/2002/24/2019 CBC HCT 35.3 % 34.1-4 4.9 Not Available [address], [address], 02/24/2019 15:15:42 02/25/2002/24/2019 CBC MCV 89.4 fL 79.4-9 4.8 Not Available [address], [address], 02/24/2019 15:15:42 02/25/20 19 02/24/2019 CBC MCH 28.9 pg 25.6-3 2.2 Not Available [address], [address], 02/24/2019 15:15:42 02/25/2002/24/2019 CBC MCHC 32.3 g/dL 32.2-3 5.5 Not Available [address], [address], 02/24/2019 15:15:42 02/25/2002/24/2019 CBC plt 231 K/ L 182-36 9 Not Available [address], [address], 02/24/2019 15:15:42 02/25/2002/24/2019 CBC MPV 10.5 fL 9.4-12 .3 Not Available [address], [address], 02/24/2019 15:15:42 02/25/20 19 02/24/2019 CBC neut% 59.6 % 34.0-7 1.1 Not Available [address], [address], 02/24/2019 15:15:42 02/25/20 19 02/24/2019 CBC neut# 2.82 1.56-6 .13 Not Available [address], [address], 02/24/2019 15:15:42 02/25/20 19 02/24/2019 CBC lymph % 31.7 % 19.3-5 1.7 Not Available [address], [address], 02/24/2019 15:15:42 02/25/2002/24/2019 CBC lymph # 1.50 K/ L 1.18-3 .74 Not Available [address], [address], 02/24/2019 15:15:42 02/25/20 19 02/24/2019 CBC mono% 7.4 % 4.7-12 .5 Not Available [address], [address], 02/24/2019 15:15:42 02/25/2002/24/2019 CBC mono# 0.35 0.24-0 .56 Not Available [address], [address], 02/24/2019 15:15:42 02/25/2002/24/2019 CBC eo% 1.1 % 0.7-5. 8 Not Available [address], [address], 02/24/2019 15:15:42 02/25/2002/24/2019 CBC eo# 0.05 0.04-0 .36 Not Available [address], [address], 02/24/2019 15:15:42 02/25/20 19 02/24/2019 CBC baso% 0.2 % 0.1-1. 2 Not Available [address], [address], 02/24/2019 15:15:42 02/25/20 19 02/24/2019 CBC baso# 0.01 0.00-0 .08 Not Available [address], [address], 02/24/2019 15:15:42 02/25/20 19 02/24/2019 CBC RDW-CV 12.3 % 11.7-1 4.4 Not Available [address], [address], 02/24/2019 15:15:42 02/25/2002/24/2019 CBC Ig% 0.000 % 0.000- 0.429 Ig % >0.5 Indic ates possi ble Left Shift Not Available [address], [address], 02/24/2019 15:15:42 02/25/2002/24/2019 CBC Ig# 0.000 0.000- 0.031 Not Available [address], [address], 02/24/2019 15:15:42 02/25/2002/24/2019 CBC NRBC% 0.0 % 0.0-0. 2 Not Available [address], [address], 02/24/2019 15:15:42 02/25/2002/24/2019 CBC NRBC# 0.000 0.000- 0.012 Not Available [address], [address], 02/24/2019 15:15:42 04/14/20 22 04/14/2022 URINA LYSIS color LIGHT YELLOW yellow Not Available [address], [address], 04/14/2022 10:55:25 04/14/2004/14/2022 URINA LYSIS clarity CLEAR clear Not Available [address], [address], 04/14/2022 10:55:25 04/14/20 22 04/14/2022 URINA LYSIS glucose NEGATI VE negati ve Not Available [address], [address], 04/14/2022 10:55:25 04/14/20 22 04/14/2022 URINA LYSIS bilirubin NEGATI VE negati ve Not Available [address], [address], 04/14/2022 10:55:25 04/14/20 22 04/14/2022 URINA LYSIS ketones NEGATI VE negati ve Not Available [address], [address], 04/14/2022 10:55:25 04/14/20 22 04/14/2022 URINA LYSIS specific gravity <=1.00 5 1.001- 1.035 Not Available [address], [address], 04/14/2022 10:55:25 04/14/20 22 04/14/2022 URINA LYSIS pH 6.0 5.0-8. 0 Not Available [address], [address], 04/14/2022 10:55:25 04/14/20 22 04/14/2022 URINA LYSIS protein NEGATI VE negati ve Not Available [address], [address], 04/14/2022 10:55:25 04/14/20 22 04/14/2022 URINA LYSIS urobilinogen 0.2 E.U./D L <1.0 Not Available [address], [address], 04/14/2022 10:55:25 09/09/04/14/2022 URINA LYSIS nitrates NEGATI VE negati ve Not Available [address], [address], 04/14/2022 10:55:25 04/14/20 22 04/14/2022 URINA LYSIS blood NEGATI VE negati ve Not Available [address], [address], 04/14/2022 10:55:25 04/14/20 22 04/14/2022 URINA LYSIS leukocytes TRACE negati ve abnormal Not Available [address], [address], 04/14/2022 10:55:25 04/14/20 22 04/14/2022 CBC WBC 4.81 K/ L 3.98-1 0.04 Not Available [address], [address], 04/14/2022 11:05:03 04/14/20 22 04/14/2022 CBC RBC 3.97 M/ L 3.93-5 .22 Not Available [address], [address], 04/14/2022 11:05:03 04/14/20 22 04/14/2022 CBC HGB 11.4 g/dL 11.2-1 5.7 Not Available [address], [address], 04/14/2022 11:05:03 04/14/20 22 04/14/2022 CBC HCT 34.7 % 34.1-4 4.9 Not Available [address], [address], 04/14/2022 11:05:03 04/14/20 22 04/14/2022 CBC MCV 87.4 fL 79.4-9 4.8 Not Available [address], [address], 04/14/2022 11:05:03 04/14/20 22 04/14/2022 CBC MCH 28.7 pg 25.6-3 2.2 Not Available [address], [address], 04/14/2022 11:05:03 04/14/20 22 04/14/2022 CBC MCHC 32.9 g/dL 32.2-3 5.5 Not Available [address], [address], 04/14/2022 11:05:03 04/14/20 22 04/14/2022 CBC plt 319 K/ L 182-36 9 Not Available [address], [address], 04/14/2022 11:05:03 04/14/20 22 04/14/2022 CBC MPV 10.2 fL 9.4-12 .3 Not Available [address], [address], 04/14/2022 11:05:03 04/14/20 22 04/14/2022 CBC neut% 63.3 % 34.0-7 1.1 Not Available [address], [address], 04/14/2022 11:05:03 04/14/20 22 04/14/2022 CBC neut# 3.04 1.56-6 .13 Not Available [address], [address], 04/14/2022 11:05:03 04/14/20 22 04/14/2022 CBC lymph % 26.0 % 19.3-5 1.7 Not Available [address], [address], 04/14/2022 11:05:03 04/14/20 22 04/14/2022 CBC lymph # 1.25 K/ L 1.18-3 .74 Not Available [address], [address], 04/14/2022 11:05:03 04/14/20 22 04/14/2022 CBC mono% 8.7 % 4.7-12 .5 Not Available [address], [address], 04/14/2022 11:05:03 04/14/20 22 04/14/2022 CBC mono# 0.42 0.24-0 .56 Not Available [address], [address], 04/14/2022 11:05:03 04/14/20 22 04/14/2022 CBC eo% 1.2 % 0.7-5. 8 Not Available [address], [address], 04/14/2022 11:05:03 04/14/20 22 04/14/2022 CBC eo# 0.06 0.04-0 .36 Not Available [address], [address], 04/14/2022 11:05:03 04/14/20 22 04/14/2022 CBC baso% 0.4 % 0.1-1. 2 Not Available [address], [address], 04/14/2022 11:05:03 04/14/20 22 04/14/2022 CBC baso# 0.02 0.00-0 .08 Not Available [address], [address], 04/14/2022 11:05:03 04/14/20 22 04/14/2022 CBC RDW-CV 12.0 % 11.7-1 4.4 Not Available [address], [address], 04/14/2022 11:05:03 04/14/20 22 04/14/2022 CBC Ig% 0.400 % 0.000- 1.500 Ig % >0.5 Indic ates possi ble Left Shift Not Available [address], [address], 04/14/2022 11:05:03 04/14/20 22 04/14/2022 CBC Ig# 0.020 0.000- 0.093 Not Available [address], [address], 04/14/2022 11:05:03 04/14/20 22 04/14/2022 CBC NRBC% 0.0 % 0.0-0. 2 Not Available [address], [address], 04/14/2022 11:05:03 04/14/20 22 04/14/2022 CBC NRBC# 0.000 0.000- 0.012 Not Available [address], [address], 04/14/2022 11:05:03 04/14/20 22 04/14/2022 URINE , MICRO SCOPI C WBC 0-2 hpf 0-4/hp f Not Available [address], [address], 04/14/2022 11:19:50 04/14/20 22 04/14/2022 URINE , MICRO SCOPI C RBC NONE SEEN hpf 0-2/hp f Not Available [address], [address], 04/14/2022 11:19:50 04/14/20 22 04/14/2022 URINE , MICRO SCOPI C bacteria 1+ none seen Not Available [address], [address], 04/14/2022 11:19:50 04/14/20 22 04/14/2022 URINE , MICRO SCOPI C yeast NONE SEEN none seen Not Available [address], [address], 04/14/2022 11:19:50 04/14/20 22 04/14/2022 URINE , MICRO SCOPI C mucous NONE SEEN none seen Not Available [address], [address], 04/14/2022 11:19:50 04/14/20 22 04/14/2022 MICRO ALBUM IN/CR EATIN INE RATIO PANEL , URINE microalbumin 2.8 mg/L 1.3-20 .0 Not Available [address], [address], 04/14/2022 12:04:42 04/14/20 22 04/14/2022 MICRO ALBUM IN/CR EATIN INE RATIO PANEL , URINE creatinine urine 47.7 mg/dL 30.0-1 25.0 Not Available [address], [address], 04/14/2022 12:04:42 04/14/20 22 04/14/2022 MICRO ALBUM IN/CR EATIN INE RATIO PANEL , URINE microalb/cre at ratio 5.9 mg/g_ creat 0.0-29 .0 Not Available [address], [address], 04/14/2022 12:04:42 04/14/20 22 04/14/2022 RENAL PANEL glucose 62 mg/dL 70-100 low Not Available [address], [address], 04/14/2022 13:00:30 04/14/20 22 04/14/2022 RENAL PANEL BUN 10 mg/dL 7-18 Not Available [address], [address], 04/14/2022 13:00:30 04/14/20 22 04/14/2022 RENAL PANEL creatinine 0.8 mg/dL 0.8-1. 3 Not Available [address], [address], 04/14/2022 13:00:30 04/14/20 22 04/14/2022 RENAL PANEL B/C 12.5 ratio Not Available [address], [address], 04/14/2022 13:00:30 04/14/20 22 04/14/2022 RENAL PANEL GFR >=60ML /MIN mL/mi n normal >=60m L/min - Becky l or midly reduc ed <60mL /min- Decre ased kidne y funct ion <15mL /min - Kidne y failu re [place] [facility] calcu lates estim ated Glome rular Filtr ation Rate (eGFR ) using the Chron ic Kidne y Disea se Epide miolo gy Colla borat ion (CKD- EPI) Equat ion (Rena r et. al 2020) as recom sharee d by the Natio nal Kidne y Found ation . eGFR is based on age, serum creat inine , and sex. CKD-E PI does not calcu late eGFR by race, does not apply to child dash (age <18 years ), and shoul d not be used in pregn jeffrey. Not Available [address], [address], 04/14/2022 13:00:30 04/14/20 22 04/14/2022 RENAL PANEL sodium 138 mmol/ L 136-14 5 Not Available [address], [address], 04/14/2022 13:00:30 04/14/20 22 04/14/2022 RENAL PANEL potassium 4.4 mmol/ L 3.5-5. 1 Not Available [address], [address], 04/14/2022 13:00:30 04/14/20 22 04/14/2022 RENAL PANEL chloride 102 mmol/ L 96-107 Not Available [address], [address], 04/14/2022 13:00:30 04/14/20 22 04/14/2022 RENAL PANEL anion gap 9.1 5.0-15 .0 Not Available [address], [address], 04/14/2022 13:00:30 04/14/20 22 04/14/2022 RENAL PANEL CO2 27 mmol/ L 21-32 Not Available [address], [address], 04/14/2022 13:00:30 04/14/20 22 04/14/2022 RENAL PANEL calcium 9.4 mg/dL 8.5-10 .3 Not Available [address], [address], 04/14/2022 13:00:30 04/14/20 22 04/14/2022 RENAL PANEL albumin 3.7 g/dL 3.4-5. 0 Not Available [address], [address], 04/14/2022 13:00:30 04/14/20 22 04/14/2022 RENAL PANEL phosphorous 3.00 mg/dL 2.50-4 .90 Not Available [address], [address], 04/14/2022 13:00:30 04/14/2004/14/2022 URIC ACID uric acid 4.6 mg/dL 2.6-6. 0 Not Available [address], [address], 04/14/2022 13:00:31 04/14/20 22 04/14/2022 IRON PANEL iron 67 ug/dL 35-150 Not Available [address], [address], 04/14/2022 13:00:32 04/14/2004/14/2022 IRON PANEL [facility].I.B[facility]. 453 ug/dL 250-45 0 high Not Available [address], [address], 04/14/2022 13:00:32 04/14/20 22 04/14/2022 IRON PANEL % saturation 14.8 % Not Available [place] [address], [address], 04/14/2022 13:00:32 04/14/20 22 04/14/2022 PTH INTAC T PTH intact 23.1 pg/mL 9.6-66 .3 Not Available [address], [address], 04/14/2022 13:22:43 04/14/20 22 04/14/2022 ESTHER TIN ferritin 43 NG/mL 6-115 Not Available [address], [address], 04/14/2022 13:23:39 04/14/20 22 04/14/2022 VITAM IN D 25-HY DROXY TOTAL vitamin D 25-hydroxy EIA 57.9 NG/mL 20.0-9 9.9 Thera py is based on measu remen t of total 25-OH D, with level s less than 20 ng/mL indic ative of Vitam in D defic iency . Level s betwe en 20ng/ mL and 30 ng/mL sugge st insuf ficie ncy. Optim al Level s are great er than 30 ng/mL . Not Available [address], [address], 04/14/2022 13:53:39 Result Notes None recorded. Problems Name Problem SNOMED Code Status Onset Date Resolution Date Notes Provider Name and Address Organization Details Recorded Time Clinical finding Completed 06/25/2013 Not Available [facility] 3 02:04:02 Major depression , melancholi c type 320208148 Active 2008 Not Available [facility] 3 03:15:02 Hypothyroi dism 96272611 Active 2008 Debbie ruth [place] - [facility] 5 08:03:42 Pain of wrist region [id number] Completed 06/25/2013 Not Available [facility] 3 02:02:23 Abnormal gait 87113085 Active Not Available [facility] 3 03:15:02 Cough [id number] Completed 06/25/2013 Not Available [facility] 3 02:01:10 Pain in limb 83096545 Completed 06/25/2013 Not Available [facility] 3 02:00:58 Sciatica [id number] Active Rahul Rojo , PT [address] [place], [address] , [facility] 3 21:24:01 Problem Notes None recorded. Procedures Surgical History Date Name Laterality Status Provider Name and Address Organization Details Recorded Time 9 Deborah - Colonoscopy completed Vinny Cabrera MD [address] [place] [address], [id number], [facility] 02/28/2019 09:48:22 9 Deborah - EGD completed Vinny Cabrera MD [address] [place] [address], [phone], [facility] 02/28/2019 09:47:15 8 Deborah - Colonoscopy completed Vinny Cabrera MD [address] [place] [address], [phone], [facility] 05/29/2018 11:47:18 3 Treatment and Advice completed Rahul Rojo, PT [address] [place], [address], [facility] 04/18/2013 13:08:35 3 Treatment and Advice completed Mikayla Simpson Mph, LPT [address] [place], [address], [facility] 11/12/2012 11:39:08 2 Treatment and Advice completed Rahul Rojo, PT [address] [place], [address], [facility] 08/21/2011 13:01:09 1 Treatment and Advice completed Rahul Rojo, PT [address] [place], [address], [facility] 04/24/2011 13:03:55 Imaging Results None recorded. Procedure Notes None recorded. Medical Equipment None Reported. Allergies Allergen ID Allergen Name Allergen Category Reaction Reaction Severity Criticality Documentation Date Start Date Code Code System Note Provider Name and Address Organization Details Recorded Time [id number] vortioxet ine hydrobrom juan manuel medicatio n chest pain Not available Not available 09/20/2022 31679 34 RxNorm Rosi hsieh MA null, [facility] 3 08:17:37 [id number] Ativan medicatio n hallucina tions Not available [facility] 09/20/2022 30825 9 RxNorm IV ativa n Naomie Villar, DO [address] [facility], [place], [address] , [facility] 3 08:55:26 Medications Name Sig Start Date Stop Date Status Note LastModified by Organization Details LastModified Time cefuroxime axetil 250 mg tablet Take 1 tablet every 12 hours by oral route for 7 days. 2022 active [facility] D/C Not Available Not Available Not Available citalopram 10 mg tablet active 1 qd Not Available Not Available Not Available sucralfate 100 mg/mL oral suspension Take 10 mL 3 times a day by oral route. active Not Available Not Available No t Available Flonase 50 mcg/actuat ion nasal spray,susp ension Premont 1 spray twice a day by intranasa l route. 09/20 completed Not Available Not Available Not Available liothyroni ne 5 mcg tablet Take 1 tablet every day by oral route. active Not Available Not Available No t Available Wellbutrin SR 100 mg tablet, 12 hr sustained- release Take 1 tablet twice a day by oral route. 01/30 completed 2022-C hange to does and to XR, per pt TR/RMA Not Available Not Available Not Available tramadol 50 mg tablet TAKE 1/2 TABLET BY ORAL ROUTE EVERY DAY PRN active Not Available Not Available No t Available Tessalon Perles 100 mg capsule Take 1 capsule 3 times a day by oral route as needed. 2008 active Not Available Not Available Not Avai lable alprazolam 0.25 mg tablet Take 1 tablet 3 times a day by oral route as needed. active Not Available Not Available No t Available famotidine 20 mg tablet Take 1 tablet twice a day by oral route for 90 days. 2022 active Not Available Not Available Not Avai lable modafinil 200 mg tablet TAKE 1/2 TABLET BY ORAL ROUTE ONCE DAILY IN THE MORNING active Not Available Not Available No t Available lithium carbonate 300 mg capsule active 2 daily (pm) Not Available Not Available Not Available Cytomel 25 mcg tablet 09/20 completed 1/ tab Not Available Not Available Not Available codeine 10 mg-guaifen esin 100 mg/5 mL oral liquid Take 10 mL every 4 hours by oral route at bedtime. 2008 active Not Available Not Available Not Avai lable loratadine 10 mg tablet Take 1 tablet every day by oral route. 2008 active Not Available Not Available Not Avai lable Phenergan 25 mg/mL injection solution Take by injection route. 09/20 completed Not Available Not Available Not Available Levoxyl 137 mcg tablet 09/20 completed 1 qd Not Available Not Available Not Available Wellbutrin XL 300 mg 24 hr tablet, extended release Take 1 tablet every day by oral route. active per pt TR/RMA Not Available Not Available Not Available Lyrica 100 mg capsule Take 1 capsule every day by oral route. active Not Available Not Available No t Available Flexeril active Not Available Not Avai lable Not Available Nortrel (21) active 1 qd Not Available Not Available No t Available Amphetamin e Salt Combo (5mg) Take 1 Tablet Every Day active Not Available Not Available No t Available Wellbutrin XL 100 mg one with 300 mg tablet active Per pt TR/RMA Not Available Not Available Not Available levothyrox ine 112 mcg capsule Take 1 capsule every day by oral route. active Not Available Not Available No t Available Vitals Date Recorded Body weight Heart rate Systolic And Diastolic Provider Name and Address Organization Details Last Updated DateTime 09/20/2022 15789.62 g 80 /min 114/66 mm[Hg] [facility] 09/20/2022 08:24:51 Date Recorded Body weight Body mass index (BMI) Body height Systolic And Diastolic Provider Name and Address Organization Details Last Updated DateTime 10/11/2022 00594.7 g 23.3 kg/m2 167.64 cm 102/64 mm[Hg] [facility] 10/11/2022 08:56:00 Social History Question Answer Notes LastModified by Organizat ion Details LastModified Time Tobacco Smoking Status Former Smoker [facility] 09/20/2022 08:22:23 When Did You Quit Smoking? 16+yearssinc elastcigaret te Information not available 09/20/2022 What Was The Date Of Your Most Recent Tobacco Screening? 10/11/2022 Information not available 10/11/2022 Sex: Unknown Functional Status Question Answer Note LastModified by Organization D etails LastModified Time Do you or have you ever used any other forms of tobacco or nicotine? No Information not available 09/20/2022 What is your level of alcohol consumption? Moderate Information not available 09/20/2022 Mental Status None recorded. Family History Nothing Reported. Medical History No medical history recorded. Gynecological HistoryNo gynecological history recorded. Obstetrics History GPAL:G 0 P 0 0 0 0 Immunizations Vaccine Type Date Status Note Provider Nam e and Address Organization Details Recorded Time Influenza, split virus, quadrivalent, preservative 6 completed [facility] 05/09/2016 12:11:31 Influenza, split virus, quadrivalent, preservative 7 completed [facility] 05/11/2017 11:38:37 Influenza, split virus, quadrivalent, preservative 8 completed Not Available [facility] 09/06/2019 02:10:43 Influenza, split virus, quadrivalent, preservative 0 completed [facility] 05/18/2020 17:30:19 Influenza, split virus, quadrivalent, preservative 2 completed [facility] 09/20/2022 08:23:24 Past Encounters Encounter ID Performer Location Encounter Start Date Encounter Closed Date Diagnosis/Indication Diagnosis SNOMED-CT Code Diagnosis ICD10 Code Diagnosis Note [id number] MOLLY Hillman , [facility], OFF[address] [place] [address] 11/05/2008 11:16:11 11/09/2008 12:20:39 [id number] [facility] - [address] [place] 6 10/22/2008 08:40:19 10/22/2008 08:40:27 [id number] [facility] - [address] [place] [address] 11/03/2008 12:04:37 11/03/2008 12:04:45 [id number] [facility] CLASSIFICATION INSPECTOR Radiology , [address] [place] 6 03/15/2010 07:49:44 03/16/2010 13:52:53 [id number] Reina Mike, OT Physical Therapy, [address] [place] 6 03/14/2011 12:55:30 03/14/2011 13:57:59 [id number] Rahul Rojo , PT Physical Therapy, [address] [place] [address] 03/20/2011 12:28:12 03/21/2011 10:09:10 [id number] Rahul Rojo , PT Physical Therapy, [address] [place] [address] 03/29/2011 12:30:48 03/30/2011 07:44:36 [id number] Rahul Rojo , PT Physical Therapy, [address] [place] [address] 04/12/2011 12:26:40 04/14/2011 07:41:43 [id number] Rahul Rojo PT Physical Therapy, [address] [address] 04/24/2011 12:36:29 04/24/2011 14:43:15 [id number] Rahul Rojo PT Physical Therapy, [address] [address] 05/19/2011 12:29:18 2011 07:41:40 [id number] Rahul Rojo PT Physical Therapy, [address] [place] [address] 05/26/2011 12:28:57 05/29/2011 09:42:19 [id number] Bishnu O'Coleman , PT Physical Therapy, [address] [place] [address] 06/14/2011 12:26:28 06/15/2011 07:51:27 [id number] Rahul Rojo PT Physical Therapy, [address] [place] [address] 06/23/2011 12:24:53 06/26/2011 14:10:42 [id number] Rahul Rojo PT Physical Therapy, [address] [place] [address] 07/10/2011 13:01:03 07/10/2011 14:51:56 [id number] Rahul Rojo PT Physical Therapy, [address] [place] [address] 07/19/2011 12:29:04 07/20/2011 07:49:46 [id number] Rahul Rojo PT Physical Therapy, [address] [address] 08/09/2011 12:28:36 08/09/2011 15:28:15 [id number] Rahul Rojo PT Physical Therapy, [address] [address] 08/21/2011 12:32:33 08/22/2011 13:20:21 [id number] Rahul Rojo PT Physical Therapy, [address] [address] 09/04/2011 12:29:59 09/04/2011 13:15:00 [id number] [facility] RAD[facility] Techn[facility] Radiology , [address] [address] 09/13/2011 14:00:34 09/20/2011 14:59:02 [id number] Rahul Rojo PT Physical Therapy, [address] [address] 09/29/2011 12:30:02 09/29/2011 13:56:19 [id number] [facility] Radiology , [address] [address] 11/04/2011 10:15:19 11/06/2011 09:48:30 [id number] Rahul Rojo PT Physical Therapy, [address] [address] 11/06/2011 12:37:01 11/07/2011 07:34:14 [id number] Rahul Rojo , PT Physical Therapy, [address] [address] 11/27/2011 12:29:40 11/29/2011 07:36:31 [id number] Mikayla Simpson Mph, LPT Physical Therapy, [address] [address] 11/12/2012 07:52:01 11/12/2012 11:47:00 [id number] Nona Padilla MD , [facility], [address] [place] [address] 11/13/2012 14:41:36 11/13/2012 16:03:33 [id number] Mychal Rodgers MD Radiology , [address] [address] 11/13/2012 15:56:56 11/13/2012 16:36:24 [id number] Mikayla Simpson Mph, LPT Physical Therapy, [address] [address] 01/14/2013 07:54:47 01/14/2013 12:25:45 [id number] Rahul Rojo , PT Physical Therapy, [address] [address] 04/11/2013 12:30:11 04/14/2013 13:44:05 Sciatica [id number] Rahul Rojo , PT Physical Therapy, [address] [address] 04/18/2013 12:29:15 04/18/2013 13:39:32 Sciatica [id number] Graeme Biggs MD , [facility], [address] [place] [address] 09/02/2014 13:37:25 09/11/2014 13:29:00 Nausea and vomiting [id number] Vinny [place] MD [facility], [address] [address] 05/29/2018 10:28:39 05/29/2018 13:17:05 [id number] Vinny Cabrera MD [facility], [address] [address] 02/28/2019 08:54:22 02/28/2019 12:57:56 [id number] Naomie Villar DO , [facility], [address] [place] [address] 09/20/2022 08:14:10 09/20/2022 09:31:42 Visceroptosis 20330265 K63.4 will refer to genetics given constellat ion of symptoms etc. RTO for EDS evaluation . Superior m esenteric artery syndrome 834749074 K55.8 Follows with GI. Left sided abdominal pain 523526528 R10.9 Chronic. Has seen multiple specialist s, many tests. Hypothyroidism 82281192 E89.0 Stable on current regimen. Bilateral tinnitus 31301 89160 102 H93.13 Unclear etiology. Major depr ession, melancholic type 372959700 F32.9 On wellbutrin . Fatigue 00007693 R53.83 On modafinil for significan t fatigue. Seizure disorder 9350897 02 G40.909 Has not had in 8 years.Star hanna at age 16Unsure typeWas on seizure meds. 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 HR went from 70 to 120s with quick in-office test with PCP- Dr. Marcus with [facility]. Tries to get salt and stay well-hydra hanna. Hypermobil ity syndrome 49030472 M35.7 RTO for EDS evaluation . Chronic gastritis 396102 9 K29.50 Rec barimelts. trial of famotidine . Continue sucralfate . Excessive belching 71864 7000 R14.2 yolanda-seltz er with gas relief. Takes probiotics . [id number] DO DEVIKA Harrington, [facility], [address] [place] [address] 10/11/2022 08:50:00 10/11/2022 09:36:35 Visceroptosis 21641515 K63.4 Referral to genetics has been rerouted to [facility]. Superior m esenteric artery syndrome 759191234 K55.8 Follows with GI. Hypothyroidism 78446436 E89.0 Stable on current regimen. Major depr ession, melancholic type 385975629 F32.9 Stable. On wellbutrin . Fatigue 98010105 R53.83 On modafinil for significan t fatigue. Hypermobil ity syndrome 11962943 M35.7 According to the [employer]atio nal Consortium of Sushil-Adriano los Syndromes & Related Disorders Diagnostic Criteria for Hypermobil e Sushil-Adriano los Syndrome, this patient dose not qualify for a diagnosis of hEDS (EDS type III). She does have generalize d joint hypermobil ity, however and other multi-syst em issues thus genetics would be the next best step. Chronic gastritis 477341 9 K29.50 Famotidine helping, appetite returning and tolerating food better. Advised to increase am dose to 40mg, keep evening dose 20mg. Also discussed prn use of max strength simethicon e 125mg. Call with new/worsen ing symptoms or if no improvemen t. Pt agrees with plan. Excessive belching 84668 7000 R14.2 yolanda-seltz er with gas relief helps, other recs as above. Takes probiotics . Health Concerns Section Related Observation LastModified by Organization Detai ls LastModified Time None Recorded Concern Status LastModified by Organization Details LastModified Time None Recorded Advance Directives Directive None Recorded Payers Insurance Date Sequence Insurance Name Policy Number Policy Wallace Covered Member ID Wallace Member ID Guarantor Name 10/24/[address] [place] [address] [id number] Ambrose José [id number] Ambrose José Notes Date Note Type Note Provider Name and Address Organization Details Recorded Time 023 text/h tml Patient presents to discuss possible connective tissue disorder. L sided abdominal pain for yearsSMA syndromeDuodenojejunostomynutcracker syndromestill with L. sided abdominal pain saw specialist in [place], pain is worst with standing updid upright imaging and dx with visceroptosis elevated CRP, checked for lupus with rheum and was neg muscle pain all the time tramadol prnhas some joint pain in handsachy knees belches instead of passing gas, stomach gets gassy as soon as she eats denies GERD hx abnormal gait, always feels like she is in motionringing in ears on wellbutrin for depression Gets headaches often, usually in back of head, feels like pressure, sometimes in frontal/sinus area feels like she is always tense, thinks is triggered by stress admits to dizziness upon standing, intakes salt does have hypermobility, denies dislocations Naomie Villar DO [address] [place] [address], [phone] , [facility] 09/20/2022 09:13:08 023 text/h tml Patient presents for second EDS evaluation. famotidine is helping, has been able to feel hungry again which has been a strange feeling. Is eating more and tolerating the food better. Trefis without appts until February 2024, was rerouted to [facility] Naomie Villar DO [address] [place] [address], [phone] , [facility] 10/11/2022 09:29:17 OBGyn Episode No OBEpisode recorded.
--- OUTSIDE RECORDS SUMMARY | 2025-02-12 10:59 | XMS_ITS | Encounter Summary ---
Author Organization [facility] Address [address] [address] Phone Care Team Providers Care Automatic Winder Operator Name Role Phone Wanda Hart MD Primary Care Provider Encounter Details Date Type Department Care Team ([facility] st Contact Info) Description 01/19/2025 Office Communication [facility].. [address] [phone] Ion Hargrove [address] [address] Social History Tobacco Use Types Packs/Day Years Used Date Smoking Tobacco: Former Cigarettes Q uit: 02/18/2020 Smokeless Tobacco: Never Alcohol Use Standard Drinks/Week Comments Yes 12 (1 standard drink = 0.6 oz pure alcohol) Alcoholic Drinks/day: Occasional social drink Comments Unknown Sex and Gender Information Value Date Recorded Sex Assigned at Not on file Legal Sex Female 4:57 PM EST Gender Identity Not on file Sexual Orientation Not on file documented as of this encounter Miscellaneous Notes * Telephone Encounter - Ion Hargrove - 01/19/2025 11:42 AM EDT Patient is awaiting referrals, one for pain management and one for a nerve ablation for kidneys, states that she requested the referral from her PCP but PCP told her she needs to get them from you since you're the ne treating her for kidney pain documented in this encounter Plan of Treatment Upcoming Encounters Date Type Department Care Team (Late st Contact Info) Description 04/20/2025 4:15 PM EDT Office Visit [facility] [address] [address] Leon Baumann MD [address] [address] documented as of this encounter Visit Diagnoses Not on filedocumented in this encounter Care Teams Automatic Winder Operator Relationship Specialty Start Date End Date Wanda Hart MD [facility] [place] [address] PCP - General 08/16/20 documented as of this encounter
--- OUTSIDE RECORDS SUMMARY | 2025-02-12 11:00 | XMS_ITS | Clinical Summary ---
Author Organization [facility] Address [address] [place] [address] Care Team Providers Care Asic Engineer Name Role Phone TannerWanda pugh Sarika Primary Care Provider [phone] Allergies Active Allergy Reactions Criticality Noted Date Comments Adhesive Tape-Silicones Rash 01/11/2024 Lorazepam Other (see comments) ,Heparin induced thrombocytopenia,Hallucinati ons High 05/09/2018 ONLY IV Vortioxetine Chest pain 12/15/2021 Medications ALPRAZolam (XANAX) 0.25 mg tablet SMARTSI-2 Tablet(s) By Mouth Daily PRN Active buPROPion XL (WELLBUTRIN XL) 300 mg tablet SMARTSI Tablet(s) By Mouth Daily 08/21/2023 Active cholecalciferol (VITAMIN D3) 1,000 unit tablet Take 1,000 Units by mouth daily. Active cyanocobalamin/ folic acid (vitamin E06-vilat acid) 500-400 mcg tablet Active dextroamphetami ne-amphetamine XR (ADDERALL XR) 20 mg capsule SMARTSI Capsule(s) By Mouth Daily 06/20/2023 Active dextroamphetami ne-amphetamine (ADDERALL) 10 mg tablet SMARTSI Tablet(s) By Mouth Daily 06/26/2023 Active traMADoL (ULTRAM) 50 mg tablet SMARTSI Tablet(s) By Mouth Every 12 Hours PRN Active pregabalin (LYRICA) 100 mg capsule SMARTSI Capsule(s) By Mouth 3 Times Daily Active modafiniL (PROVIGIL) 200 mg tablet Take 100 mg by mouth once a day. Active Cytomel 5 mcg tablet Take 5 mcg by mouth. 07/03/2023 Active levothyroxine (SYNTHROID, LEVOTHROID) 112 mcg tablet Take 112 mcg by mouth. 08/14/2023 Active Lactobac. rhamnosus GG-inulin 20 billion cell -200 mg capsule Acti ve famotidine (PEPCID) 20 mg tablet SMARTSI Tablet(s) By Mouth Twice Daily Active digestive enzymes capsule Take 3 tablets by mouth 3 times daily. Active Active Problems Problem Noted Date Diagnosed Date Hypothyroid 02/26/2024 Gastroparesis 10/24/2023 Depressive disorder 10/12/2021 Overview (10/24/2023): hospitalized May 2008 after tylenol PM overdoseDr Kashif, psych in [place] Hypothyroidism 10/12/2021 Overview (10/24/2023): after radioablation, sees Dr Patel after radioablation, sees Dr Patel Graves' disease 05/04/2021 Superior mesenteric artery syndrome 05/04/2021 Chronic pain syndrome 10/27/2020 Overview (10/24/2023): Last Assessment & Plan: Saw rheum who did more blood work but does not feel this is vasculitis or SLE. Of note, patient feels better after lying down. Needs to keep lying down during the day because of pain and pulling feeling. She is double jointed and stretchy skin which raises question of EDS. While standing is bad, sitting is not as bad. Seeking osteopathic manipulation therapy (OMT) which her PCP is referring her for. IMP: Likely EDS hypermobility type. Pain may be due to visceroptosis. I reached out to radiology to see if we can do a lying/standing CT to assess of visceral descent. We can not do that, but suggestion was for supine and standing KUB. This was then ordered and emails made with radiology dept to help clarify. Patient notified of this by gateway. OMT might be beneficial so I encouraged that. Follow up by gateway. 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 10/24/2023 Pain in joint 10/12/2021 10/24/2023 Overview (10/24/2023): multiple joint and muscle pain, neg workup, takes occ prn tramadol multiple joint and muscle pain, neg workup, takes occ prn tramadol Essential (primary) hypertension 10/27/2020 03/07/2024 Left flank pain 10/27/2020 10/24/2023 Family History Medical History Relation Name Comments Diabetes Father Hyperlipidemia Father Hypertension Father Hyperlipidemia Mother Hypertension Mother Lymphoma Mother Transient ischemic attack Mother Relation Name Status Comments Father Alive Mother Alive Social History Tobacco Use Types Packs/Day Years Used Date Smoking Tobacco: Never Smokeless Tobacco: Never Alcohol Use Standard Drinks/Week Comments Yes 21 (1 standard drink = 0.6 oz pu re alcohol) 2-3 twisted teas per day Comments No Sex and Gender Information Value Date Recorded Sex Assigned at Female 09/20/2023 6:36 AM EST Legal Sex Female 10:34 AM EST Gender Identity Female 09/20/2023 6:36 AM EST Sexual Orientation Straight 09/20/2023 6: 36 AM EST Last Filed Vital Signs Vital Sign Reading Time Taken Comments Blood Pressure 123/77 03/07/2024 8:37 AM EDT Pulse 89 03/07/2024 8:37 AM EDT Temperature 36.6 C (97.9 F) 11/05/2023 2:19 PM EDT Respiratory Rate 12 11/05/2023 2:39 PM EDT Oxygen Saturation 100% 03/07/2024 8:37 AM EDT Inhaled Oxygen Concentration - - Weight 56.2 kg (124 lb) 03/07/2024 8:37 AM EDT Height 165.1 cm (5' 5 ) 03/07/2024 8:37 AM EDT Body Mass Index 20.63 03/07/2024 8:37 AM EDT Plan of Treatment Health Maintenance Due Date Last Done Comments Cervical Cancer Screening 1978 Cologuard 1978 Colon Cancer Screening 1978 Colonoscopy 1978 FOBT / Fit Test 1978 HIV Screening 1978 HPV and Pap Smear 1978 Hepatitis C Screening 1978 Pap Smear 1978 Sigmoidoscopy 1978 Hepatitis B Vaccines (1 of 3 - 19+ 3-dose series) 1997 Mammogram 2018 COVID-19 Vaccine ( season) 2024 Alcohol/Substance Use Screening 08/06/2024 Depression Screening and Follow-Up 08/06/2024 Social Drivers of Health Annual Screening 08/06/2024 Influenza Vaccine (#1) 2025 , 05/06/2022, 05/06/2022, Additional history exists DTaP,Tdap,and Td Vaccines (3 - Td or Tdap) 10/31/2025 11/01/2015, 08/21/2012 RSV Vaccine (60+ years old and patients) (1 - 1-dose 75+ series) 2053 Pneumococcal Vaccine: Pediatric (0-5 Years) and At-Risk Patients (6-50 Years) Aged Out No longer eligible based on patient's age to complete this topic Insurance HNE Care Teams Asic Engineer Relationship Specialty Start Date End Date Wanda Hart [address] [place] [phone] PCP - General Family Medicine 09/21/22
--- OUTSIDE RECORDS SUMMARY | 2025-02-12 11:00 | XMS_ITS | Clinical Summary ---
Author Organization [facility] Address [address] [place] [address] Care Team Providers Care Fisher Clam Name Role Phone Wanda Hart MD Primary Care Provider [phone] Social History Tobacco Use Types Packs/Day Years Used Date Smoking Tobacco: Never Assessed Comments Unknown Sex and Gender Information Value Date Recorded Sex Assigned at Female 09/04/2024 8:56 AM EST Legal Sex Female 11:44 AM EST Gender Identity Female 09/04/2024 8:56 AM EST Sexual Orientation Choose not to disclose 2024 8:56 AM EST Plan of Treatment Upcoming Encounters Date Type Department Care Team (Late st Contact Info) Description 04/07/2025 3:00 PM EDT Consult [facility] Neurogastroenterology [place] [address] [place] [phone] Nils Ordaz MD [address] [place] [id number] Health Maintenance Due Date Last Done Comments Hepatitis C Virus Screening 1978 HIV Screening 1991 DTaP/Tdap/Td Vaccines (1 - Tdap) 1997 Hepatitis B Vaccines (1 of 3 - 19+ 3-dose series) 1997 Pap Smear (Ages 21-65) 1999 Mammogram 2018 Colonoscopy 2023 COVID-19 Vaccine ( - 2023- season) 2024 Influenza Vaccine 03/06/2025 05/11/2022, , 05/18/2020, Additional history exists Pneumococcal Vaccine: Pediatric (0-5 Years) and At-Risk Patients (6 to 49 Years) Aged Out No longer eligible based on patient's age to complete this topic Care Teams Fisher Clam Relationship Specialty Start Date End Date [facility] [place] [address] PCP - General 09/03/24
--- OUTSIDE RECORDS SUMMARY | 2025-02-12 11:00 | XMS_ITS | Patient Health Record ---
Author Organization [facility] Address [address] [place] [address] Care Team Providers Care Digital Photo Printer Name Role Phone Tanner HILLIARD, Wanda Primary Care Provider Un available Donna Friedman Unavailable [phone] Allergies Allergen (clinical drug ingredient) Drug/Non Drug Allergy documented on EMR Reaction Allergy Type Onset Date Status adhesive tape sensitiviety/desiree h Drug Allergy Active Reason For Referral No Information Medications Medication SIG (Take, Route, Frequency, Duration) Notes Start Date End Date Status Multivitamin Active Calcium Active Blisovi FE 08/25 Acti ve N08-Mbpomi Active Levothyroxine Sodium 112 MCG 1 tablet on an empty stomach in the morning Orally Once a day Active Adderall 5 MG 0.5 tab Orally PRN Active busPIRone HCl Not-Ta holli Wellbutrin 100mg Active Social History Tobacco Use: Social History Observation Description Date Details (start date - stop date) Former Smoker NA - NA Tobacco Use/Smoking Question Answer Notes Are you a: former smoker Alcohol Screen Question Answer Notes Did you have a drink containing alcohol in the p ast year? No Points 0 Interpretation Negative Tobacco use other than smoking: Question Answer Notes Are you an other tobacco user? No Problems No Known Problems Plan Of Treatment Pending Test Test Name Order Date [id number] Plate 11/08/2016 [id number] Plate 07/25/2017 Insurance Providers Payer Name Payer Address Payer Phone Subscriber Number Group Number Insured Name Patient Relationship to Insured Coverage Start Date Coverage End Date [facility] [address] [place] [address] [id number] Ambrose José Self - patient is the insured Medical (General) History Medical History History ICD Code Depression Epilepsy Seizures Chicken pox Thyroid disorder Surgical History Surgery Date(Month/Year) renal stent 10/2018 DDJ 07/04/19
--- OUTSIDE RECORDS SUMMARY | 2025-02-12 11:00 | XMS_ITS ---
Author Name [facility] Organization Unknown Problems Problem Status Onset Date Problem Type Date of Resolution Source Abdominal pain, left upper quadrant active EncounterDiagnosisAct [facility] Nausea active EncounterDiagnosisAct CCT Bloating active EncounterDiagnosisAct CCT Gastroparesis active En[facility] Care Team Organization Name Specialty Phone Email Start Date End [facility] Primary Care 09/04/2024
[2025-02-12 11:03] LABS: Resp Syncy Virus RNA Qual PCR NEGATIVE (Negative); SARS COV2 PCR INHOUSE NEGATIVE (Negative)
--- NOTE | 2025-02-12 12:03 | PC.NURSE ---
Repeat troponin level drawn and sent to lab for analysis. Results pending. Care ongoing by this RN.
[2025-02-12 12:06] VITALS: BP 108/62; PULSE 60; RESP 15; TEMP 36.4; O2SAT 100
[2025-02-12 12:31] LABS: Troponin-I High Sensitivity < 2.7 ng/L (<3.5-17.0)
[2025-02-12 13:50] VITALS: BP 108/62; PULSE 60; RESP 15; TEMP 36.4; O2SAT 100
== END 2025-02-12 13:50 | disposition home or self-care (01) ==
PROVIDERS: Registered Nurse Emergency; Emergency Provider Emergency Medicine; PCP Family Medicine
DX: R07.89 Other chest pain (principal); M25.512 Pain in left shoulder; E03.9 Hypothyroidism, unspecified; K31.84 Gastroparesis; Q79.60 Ehlers-Danlos syndrome, unspecified; K63.4 Enteroptosis; R56.9 Unspecified convulsions; Z03.818 Encounter for observation for suspected exposure to other biological agents ruled out; Z79.899 Other long term (current) drug therapy
CPT/HCPCS: 36415; 71046; 80053; 83690; 83735; 83880; 84484; 84702; 85025; 85379; 85610; 87637; 93005; 96374; 96375; 99284; 99291; J2270; J2405

== ENCOUNTER → 2025-02-12 09:43 | Outpatient (BNV) | payer OTHER, SELFPAY | PROVIDERS: Emergency Provider Emergency Medicine; PCP Family Medicine; Visit Provider Internal Medicine Cardiovascular Disease | DX: R07.9 Chest pain, unspecified (principal) | CPT/HCPCS: 93010 ==

== ENCOUNTER → 2025-02-12 10:15 | Outpatient (BNV) | payer OTHER, SELFPAY | PROVIDERS: Emergency Provider Emergency Medicine; PCP Family Medicine; Visit Provider Radiology Diagnostic Radiology | DX: R07.9 Chest pain, unspecified (principal) | CPT/HCPCS: 71046 ==